=== PATIENT | female | born 1970 | race Asian ===

== ENCOUNTER 2016-10-16 18:54 | Inpatient (IN) | payer OTHER ==
[~2016-10-16] VITALS: Ht 157.5 cm; Wt 67.6 kg
[2016-10-16] MEDS ORDERED: Albuterol ud Inhalation HHN ONE (19:15)
--- NOTE | 2016-10-16 19:15 | Emergency Room Report ---
History of Present Illness General Chief Complaint: Dyspnea/Respdistress Source: Patient, Caregiver Present Illness HPI Patient's 38-year-old female presented after increased difficulty breathing for the past 2 days. Patient gradual onset of symptoms. 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 Reviewed Nursing Documentation: PMH: Agreed, PSxH: Agreed Nursing Documentation-PMH Past Medical History: No History, Except For Hx Asthma: Yes Review of Systems All Other Systems: negative except mentioned in HPI Physical Exam Vital Signs Date Time Temp Pulse Resp B/P Pulse Ox O2 Delivery O2 Flow Rate FiO2 10/16/16 18:58 97.3 93 23 139/94 94 Room Air General Appearance: alert, GCS 15, moderate distress ENT: normal pharynx Neck: limited range of motion Respiratory: wheezing Cardiovascular #1: normal peripheral pulses, regular rate, rhythm Gastrointestinal: normal inspection Neurologic: alert, oriented x3, responsive, edgerman III-XII nml as tested, motor weakness - bilateral upper and lower extremities Psychiatric: normal inspection Skin: normal inspection, normal color Medical Decision Making Diagnostic Impression: Primary Impression: Shortness of breath Additional Impressions: Urinary tract infection Hyponatremia Quadriplegia, unspecified ER Course Patient presented for shortness of breath. Differential included but was not limited to anemia, pneumonia, pneumothorax, myocardial infarction, pericardial effusion, congestive heart failure, acidosis. Because of complexity of patient' s case laboratory testing and imaging studies were ordered.The laboratory studies are notable for markedly hyponatremia. The patient was noted to have elevated urine sodium.D-dimer was noted be negative. A chest x-ray one view interpreted by me showed a right lower lobe atelectasis without definite infiltrate. Urinalysis showed evidence of urinary infection. Patient was given IV antibiotics.Dr. Lisseth Cantu was contacted for inpatient management Labs Test 10/16/16 19:00 10/16/16 20:00 White Blood Count 11.5 K/UL (4.8-10.8) Red Blood Count 3.99 M/UL (4.20-5.40) Hemoglobin 13.1 G/DL (12.0-16.0) Hematocrit 37.0 % (37.0-47.0) Mean Corpuscular Volume 93 FL (80-99) Mean Corpuscular Hemoglobin 32.8 PG (27.0-31.0) Mean Corpuscular Hemoglobin Concent 35.4 G/DL (32.0-36.0) Red Cell Distribution Width 11.1 % (11.6-14.8) Platelet Count 229 K/UL (150-450) Mean Platelet Volume 5.2 FL (6.5-10.1) Neutrophils (%) (Auto) 91.8 % (45.0-75.0) Lymphocytes (%) (Auto) 4.0 % (20.0-45.0) Monocytes (%) (Auto) 3.5 % (1.0-10.0) Eosinophils (%) (Auto) 0.4 % (0.0-3.0) Basophils (%) (Auto) 0.4 % (0.0-2.0) D-Dimer 257 ng/mL (<500) Sodium Level 125 mEQ/L (135-145) Potassium Level 4.1 mEQ/L (3.4-4.9) Chloride Level 94 mEQ/L (98-107) Carbon Dioxide Level 18 mEQ/L (20-30) Anion Gap 13 (5-15) Blood Urea Nitrogen 5 mg/dL (7-23) Creatinine 0.3 mg/dL (0.5-0.9) Estimat Glomerular Filtration Rate > 60 mL/min (>60) Glucose Level 133 mg/dL (74-106) Lactic Acid Level 0.80 mmol/L (0.66-2.22) Calcium Level 7.9 mg/dL (8.6-10.2) Total Bilirubin 1.3 mg/dL (0.0-1.2) Direct Bilirubin 0.2 mg/dL (0.1-0.3) Aspartate Amino Transf (AST/SGOT) 24 U/L (5-40) Alanine Aminotransferase (ALT/SGPT) 8 U/L (3-33) Alkaline Phosphatase 49 U/L (35-104) Pro-B-Type Natriuretic Peptide 345 pg/mL (0-125) Total Protein 6.2 g/dL (6.6-8.7) Albumin 3.8 g/dL (3.5-5.2) Globulin 2.4 g/dL Albumin/Globulin Ratio 1.5 (1.0-2.7) Urine Color Pale yellow Urine Appearance Cloudy Urine pH 7 (4.5-8.0) Urine Specific [place] 1.010 (1.005-1.035) Urine Protein 1+ (NEGATIVE) Urine Glucose (UA) Negative (NEGATIVE) Urine Ketones 4+ (NEGATIVE) Urine Occult Blood Negative (NEGATIVE) Urine Nitrite Positive (NEGATIVE) Urine Bilirubin Negative (NEGATIVE) Urine Urobilinogen 4 MG/DL (0.0-1.0) Urine Leukocyte Esterase 3+ (NEGATIVE) Urine RBC 0-2 /HPF (0 - 2) Urine WBC 10-15 /HPF (0 - 2) Urine Squamous Epithelial Cells None /LPF (NONE/OCC) Urine Bacteria Many /HPF (NONE) Urine Random Sodium 114 mmol/L EKG Diagnostic Results Rate: normal Rhythm: NSR ST Segments: no acute changes ASA given to the pt in ED: No Rhythm Strip Diag. Results EP Interpretation: yes Rhythm: NSR, no PVC's, no ectopy Last Vital Signs Date Time Temp Pulse Resp B/P Pulse Ox O2 Delivery O2 Flow Rate FiO2 10/16/16 18:58 97.3 93 23 139/94 94 Room Air Status: unchanged Disposition: ADMITTED INPATIENT Condition: Stable Rip Ceja Oct 16, 2016 19:15
[2016-10-16 19:45] LABS: MEAN CORPUSCULAR HEMOGLOBIN 32.8 PG (27.0-31.0); MEAN CORPUSCULAR HGB CONC 35.4 G/DL (32.0-36.0); MEAN CORPUSCULAR VOLUME 93 FL (80-99); MEAN PLATELET VOLUME 5.2 FL (6.5-10.1); PLATELET COUNT 229 K/UL (150-450); RED BLOOD COUNT 3.99 M/UL (4.20-5.40); RED CELL DISTRIBUTION WIDTH 11.1 % (11.6-14.8); WHITE BLOOD COUNT 11.5 K/UL (4.8-10.8)
[2016-10-16 19:46] LABS: MONOCYTES % (AUTO) 3.5 % (1.0-10.0); NEUTROPHILS % (AUTO) 91.8 % (45.0-75.0)
[2016-10-16 19:47] LABS: BASOPHILS % (AUTO) 0.4 % (0.0-2.0); EOSINOPHILS % (AUTO) 0.4 % (0.0-3.0)
[2016-10-16 20:07] LABS: ALANINE AMINOTRANSFERASE 8 U/L (3-33); ALBUMIN/GLOBULIN RATIO 1.5 (1.0-2.7); ANION GAP 13 (5-15); ASPARTATE AMINO TRANSFERASE 24 U/L (5-40); CALCIUM 7.9 mg/dL (8.6-10.2); CARBON DIOXIDE 18 mEQ/L (20-30); CHLORIDE 94 mEQ/L (98-107); CREATININE 0.3 mg/dL (0.5-0.9); GLOMERULAR FILTRATION RATE > 60 mL/min (>60); HEMOLYSIS 38; POTASSIUM 4.1 mEQ/L (3.4-4.9); SODIUM 125 mEQ/L (135-145); TOTAL PROTEIN 6.2 g/dL (6.6-8.7)
[2016-10-16 20:27] LABS: BILIRUBIN,DIRECT 0.2 mg/dL (0.1-0.3)
[2016-10-16 20:47] LABS: KETONES,URINE 4+ (NEGATIVE); LEUKOCYTE ESTERASE ,URINE 3+ (NEGATIVE); NITRITE,URINE POSITIVE (NEGATIVE); PH,URINE 7 (4.5-8.0); PROTEIN,URINE 1+ (NEGATIVE); UROBILINOGEN,URINE 4 MG/DL (0.0-1.0)
[2016-10-16 20:48] LABS: APPEARANCE,URINE CLOUDY
[2016-10-16 20:53] LABS: BACTERIA,URINE MANY /HPF; RBC,URINE 0-2 /HPF (0 - 2)
[2016-10-16] MEDS ORDERED: cefTRIAXone 1 GM in NS 55 ML IVPB ONE (21:00)
[2016-10-16 22:39] VITALS: BP 127/83
[2016-10-16 23:50] VITALS: BP 99/65
[2016-10-16] MEDS ORDERED: KADIAN20 MG ORAL (23:53)
[2016-10-16] MEDS ORDERED: DULCOLAX10 MG RC (23:53)
[2016-10-17 00:20] VITALS: BP 114/55
[2016-10-17] MEDS ORDERED: Bisacodyl EC 5mg tab ORAL PRN (01:00)
[2016-10-17] MEDS ORDERED: Docusate 100mg cap ORAL PRN (01:00)
[2016-10-17] MEDS ORDERED: Milk of Magnesia 30ml Ud ORAL PRN (01:00)
[2016-10-17] MEDS ORDERED: DuoNeb 0.5-3(2.5)mg/3ml neb HHN PRN (01:00)
[2016-10-17] MEDS ORDERED: BISACODYL10 M1 RC (03:03)
[2016-10-17] MEDS ORDERED: ACTONEL35 MG ORAL (03:03)
[2016-10-17 04:00] VITALS: BP 123/50
[2016-10-17 07:37] LABS: BASOPHILS % (AUTO) 0.3 % (0.0-2.0); EOSINOPHILS % (AUTO) 0.4 % (0.0-3.0); LYMPHOCYTES % (AUTO) 11.3 % (20.0-45.0); MEAN CORPUSCULAR HEMOGLOBIN 33.2 PG (27.0-31.0); MEAN CORPUSCULAR HGB CONC 34.8 G/DL (32.0-36.0); MEAN CORPUSCULAR VOLUME 95 FL (80-99); MEAN PLATELET VOLUME 5.8 FL (6.5-10.1); MONOCYTES % (AUTO) 7.4 % (1.0-10.0); NEUTROPHILS % (AUTO) 80.5 % (45.0-75.0); PLATELET COUNT 217 K/UL (150-450)
[2016-10-17 07:43] LABS: ANION GAP 11 (5-15); CALCIUM 7.3 mg/dL (8.6-10.2); CARBON DIOXIDE 23 mEQ/L (20-30); CHLORIDE 95 mEQ/L (98-107); CREATININE 0.3 mg/dL (0.5-0.9); GLOMERULAR FILTRATION RATE > 60 mL/min (>60); HEMOLYSIS 1; POTASSIUM 3.6 mEQ/L (3.4-4.9); SODIUM 129 mEQ/L (135-145)
[2016-10-17 08:13] VITALS: BP 120/80
[2016-10-17] MEDS: Heparin 5000 units/ml inj SUBQ SCH ×2 (08:40→20:43)
[2016-10-17 11:38] VITALS: BP 125/88
--- NOTE | 2016-10-17 11:53 | Diagnostic Imaging Report ---
Indication: Dyspnea Comparison: None A single view chest radiograph was obtained. Findings: Cardiomediastinal appearance is within normal limits for age. Pulmonary vascularity is appropriate. The diaphragmatic contour is smooth and costophrenic angles are sharp. No pleural effusions are identified. The bones are unremarkable. Impression: No acute findings
--- NOTE | 2016-10-17 13:23 | Neurology Progress Note ---
Objective Physical Exam Last Vital Signs Date Time Temp Pulse Resp B/P Pulse Ox O2 Delivery O2 Flow Rate FiO2 10/17/16 11:38 97.9 77 20 125/88 96 Nasal Cannula 2.0 10/16/16 23:50 21 Laboratory Tests Test 10/16/16 19:00 10/16/16 20:00 10/17/16 05:50 White Blood Count 11.5 K/UL (4.8-10.8) H 7.0 K/UL (4.8-10.8) Red Blood Count 3.99 M/UL (4.20-5.40) L 3.60 M/UL (4.20-5.40) L Hemoglobin 13.1 G/DL (12.0-16.0) 12.0 G/DL (12.0-16.0) Hematocrit 37.0 % (37.0-47.0) 34.3 % (37.0-47.0) L Mean Corpuscular Volume 93 FL (80-99) 95 FL (80-99) Mean Corpuscular Hemoglobin 32.8 PG (27.0-31.0) H 33.2 PG (27.0-31.0) H Mean Corpuscular Hemoglobin Concent 35.4 G/DL (32.0-36.0) 34.8 G/DL (32.0-36.0) Red Cell Distribution Width 11.1 % (11.6-14.8) L 11.0 % (11.6-14.8) L Platelet Count 229 K/UL (150-450) 217 K/UL (150-450) Mean Platelet Volume 5.2 FL (6.5-10.1) L 5.8 FL (6.5-10.1) L Neutrophils (%) (Auto) 91.8 % (45.0-75.0) H 80.5 % (45.0-75.0) H Lymphocytes (%) (Auto) 4.0 % (20.0-45.0) L 11.3 % (20.0-45.0) L Monocytes (%) (Auto) 3.5 % (1.0-10.0) 7.4 % (1.0-10.0) Eosinophils (%) (Auto) 0.4 % (0.0-3.0) 0.4 % (0.0-3.0) Basophils (%) (Auto) 0.4 % (0.0-2.0) 0.3 % (0.0-2.0) D-Dimer 257 ng/mL (<500) Sodium Level 125 mEQ/L (135-145) L 129 mEQ/L (135-145) L Potassium Level 4.1 mEQ/L (3.4-4.9) 3.6 mEQ/L (3.4-4.9) Chloride Level 94 mEQ/L (98-107) L 95 mEQ/L (98-107) L Carbon Dioxide Level 18 mEQ/L (20-30) L 23 mEQ/L (20-30) Anion Gap 13 (5-15) 11 (5-15) Blood Urea Nitrogen 5 mg/dL (7-23) L 5 mg/dL (7-23) L Creatinine 0.3 mg/dL (0.5-0.9) L 0.3 mg/dL (0.5-0.9) L Estimat Glomerular Filtration Rate > 60 mL/min (>60) > 60 mL/min (>60) Glucose Level 133 mg/dL (74-106) H 120 mg/dL (74-106) H Lactic Acid Level 0.80 mmol/L (0.66-2.22) Calcium Level 7.9 mg/dL (8.6-10.2) L 7.3 mg/dL (8.6-10.2) L Total Bilirubin 1.3 mg/dL (0.0-1.2) H Direct Bilirubin 0.2 mg/dL (0.1-0.3) Aspartate Amino Transf (AST/SGOT) 24 U/L (5-40) Alanine Aminotransferase (ALT/SGPT) 8 U/L (3-33) Alkaline Phosphatase 49 U/L (35-104) Pro-B-Type Natriuretic Peptide 345 pg/mL (0-125) H Total Protein 6.2 g/dL (6.6-8.7) L Albumin 3.8 g/dL (3.5-5.2) Globulin 2.4 g/dL Albumin/Globulin Ratio 1.5 (1.0-2.7) Urine Color Pale yellow Urine Appearance Cloudy Urine pH 7 (4.5-8.0) Urine Specific Pyrites 1.010 (1.005-1.035) Urine Protein 1+ (NEGATIVE) H Urine Glucose (UA) Negative (NEGATIVE) Urine Ketones 4+ (NEGATIVE) H Urine Occult Blood Negative (NEGATIVE) Urine Nitrite Positive (NEGATIVE) H Urine Bilirubin Negative (NEGATIVE) Urine Urobilinogen 4 MG/DL (0.0-1.0) H Urine Leukocyte Esterase 3+ (NEGATIVE) H Urine RBC 0-2 /HPF (0 - 2) Urine WBC 10-15 /HPF (0 - 2) H Urine Squamous Epithelial Cells None /LPF (NONE/OCC) Urine Bacteria Many /HPF (NONE) H Urine Random Sodium 114 mmol/L Impression/Recommendations Recommendations # [id number] GINO WHITE Oct 17, 2016 13:23
--- NOTE | 2016-10-17 14:07 | Infectious Diseases Prog Note ---
Assessment/Plan Problems: (1) Urinary tract infection Assessment & Plan: will send culture and start ceftriaxon empirically (2) Quadriplegia, unspecified Assessment & Plan: continue supportive care (3) Hyponatremia Assessment & Plan: recommend fluids restriction and close monitor of sodium level (4) SOB (shortness of breath) Assessment & Plan: suspect fluids overload, needs to rule out PE, recommend CT angio of the chest Subjective Allergies: Coded Allergies: No Known Allergies (Unverified , 10/16/16) Objective Vital Signs Last 24 Hour Vital Signs Date Time Temp Pulse Resp B/P Pulse Ox O2 Delivery O2 Flow Rate FiO2 10/17/16 11:38 97.9 77 20 125/88 96 Nasal Cannula 2.0 10/17/16 08:13 98.2 74 20 120/80 98 Nasal Cannula 2.0 10/17/16 07:33 72 10/17/16 04:00 70 10/17/16 04:00 97.8 82 20 123/50 98 Nasal Cannula 3.0 10/17/16 01:06 78 18 100 Nasal Cannula 4.0 10/17/16 01:05 75 18 98 Nasal Cannula 4.0 10/17/16 01:04 98 Nasal Cannula 4.0 10/17/16 01:04 Nasal Cannula 4.0 10/17/16 01:02 79 18 10/17/16 00:20 97.9 85 20 114/55 98 Nasal Cannula 3.0 10/16/16 23:50 97.3 87 20 127/83 98 Nasal Cannula 21 10/16/16 23:50 97.3 90 27 99/65 98 Nasal Cannula 21 10/16/16 22:39 97.3 87 20 127/83 98 Nasal Cannula 10/16/16 19:40 86 20 98 Room Air 21 10/16/16 19:33 83 24 Room Air 10/16/16 19:33 84 26 93 Room Air 21 10/16/16 19:05 93 23 Room Air 10/16/16 18:58 97.3 93 23 139/94 94 Room Air Height (Feet): 5 Height (Inches): 2.00 Weight (Pounds): 149 Microbiology Date/Time Source Procedure Growth Status 10/16/16 20:00 Urine,Clean Catch Urine Culture - Preliminary Resulted Laboratory Tests Test 10/16/16 19:00 10/16/16 20:00 10/17/16 05:50 White Blood Count 11.5 K/UL (4.8-10.8) H 7.0 K/UL (4.8-10.8) Red Blood Count 3.99 M/UL (4.20-5.40) L 3.60 M/UL (4.20-5.40) L Hemoglobin 13.1 G/DL (12.0-16.0) 12.0 G/DL (12.0-16.0) Hematocrit 37.0 % (37.0-47.0) 34.3 % (37.0-47.0) L Mean Corpuscular Volume 93 FL (80-99) 95 FL (80-99) Mean Corpuscular Hemoglobin 32.8 PG (27.0-31.0) H 33.2 PG (27.0-31.0) H Mean Corpuscular Hemoglobin Concent 35.4 G/DL (32.0-36.0) 34.8 G/DL (32.0-36.0) Red Cell Distribution Width 11.1 % (11.6-14.8) L 11.0 % (11.6-14.8) L Platelet Count 229 K/UL (150-450) 217 K/UL (150-450) Mean Platelet Volume 5.2 FL (6.5-10.1) L 5.8 FL (6.5-10.1) L Neutrophils (%) (Auto) 91.8 % (45.0-75.0) H 80.5 % (45.0-75.0) H Lymphocytes (%) (Auto) 4.0 % (20.0-45.0) L 11.3 % (20.0-45.0) L Monocytes (%) (Auto) 3.5 % (1.0-10.0) 7.4 % (1.0-10.0) Eosinophils (%) (Auto) 0.4 % (0.0-3.0) 0.4 % (0.0-3.0) Basophils (%) (Auto) 0.4 % (0.0-2.0) 0.3 % (0.0-2.0) D-Dimer 257 ng/mL (<500) Sodium Level 125 mEQ/L (135-145) L 129 mEQ/L (135-145) L Potassium Level 4.1 mEQ/L (3.4-4.9) 3.6 mEQ/L (3.4-4.9) Chloride Level 94 mEQ/L (98-107) L 95 mEQ/L (98-107) L Carbon Dioxide Level 18 mEQ/L (20-30) L 23 mEQ/L (20-30) Anion Gap 13 (5-15) 11 (5-15) Blood Urea Nitrogen 5 mg/dL (7-23) L 5 mg/dL (7-23) L Creatinine 0.3 mg/dL (0.5-0.9) L 0.3 mg/dL (0.5-0.9) L Estimat Glomerular Filtration Rate > 60 mL/min (>60) > 60 mL/min (>60) Glucose Level 133 mg/dL (74-106) H 120 mg/dL (74-106) H Lactic Acid Level 0.80 mmol/L (0.66-2.22) Calcium Level 7.9 mg/dL (8.6-10.2) L 7.3 mg/dL (8.6-10.2) L Total Bilirubin 1.3 mg/dL (0.0-1.2) H Direct Bilirubin 0.2 mg/dL (0.1-0.3) Aspartate Amino Transf (AST/SGOT) 24 U/L (5-40) Alanine Aminotransferase (ALT/SGPT) 8 U/L (3-33) Alkaline Phosphatase 49 U/L (35-104) Pro-B-Type Natriuretic Peptide 345 pg/mL (0-125) H Total Protein 6.2 g/dL (6.6-8.7) L Albumin 3.8 g/dL (3.5-5.2) Globulin 2.4 g/dL Albumin/Globulin Ratio 1.5 (1.0-2.7) Urine Color Pale yellow Urine Appearance Cloudy Urine pH 7 (4.5-8.0) Urine Specific [place] 1.010 (1.005-1.035) Urine Protein 1+ (NEGATIVE) H Urine Glucose (UA) Negative (NEGATIVE) Urine Ketones 4+ (NEGATIVE) H Urine Occult Blood Negative (NEGATIVE) Urine Nitrite Positive (NEGATIVE) H Urine Bilirubin Negative (NEGATIVE) Urine Urobilinogen 4 MG/DL (0.0-1.0) H Urine Leukocyte Esterase 3+ (NEGATIVE) H Urine RBC 0-2 /HPF (0 - 2) Urine WBC 10-15 /HPF (0 - 2) H Urine Squamous Epithelial Cells None /LPF (NONE/OCC) Urine Bacteria Many /HPF (NONE) H Urine Random Sodium 114 mmol/L Current Medications Medications (Trade) Dose Ordered Sig/Sara Route PRN Reason Start Time Stop Time Status Last Admin Dose Admin Acetaminophen (Tylenol) 650 mg Q4H PRN ORAL Mild Pain/Temp > 100.5 10/17/16 01:00 11/16/16 00:59 Albuterol/ Ipratropium (DuoNeb 0.5-3(2.5)mg/3ml) 3 ml Q4H PRN HHN Shortness of Breath 10/17/16 01:00 10/22/16 00:59 Bisacodyl (Dulcolax) 5 mg DAILY PRN ORAL Constipation 10/17/16 01:00 11/16/16 00:59 Docusate Sodium (Colace) 100 mg BID PRN ORAL Constipation 10/17/16 01:00 11/16/16 00:59 Heparin Sodium (Porcine) (Heparin 5000 units/ml) 5,000 units EVERY 12 HOURS SUBQ 10/17/16 09:00 11/16/16 08:59 Magnesium Hydroxide 30 ml 30 ml DAILYPRN PRN ORAL Constipation 10/17/16 01:00 11/16/16 00:59 Sodium Chloride (Sodium Chloride 1000ml bag) 1,000 ml @ 50 mls/hr Q20H IV 10/17/16 01:45 11/16/16 01:44 10/17/16 01:56 Teofilo Chapa M.D. Oct 17, 2016 14:07
--- NOTE | 2016-10-17 14:52 | Consultation ---
Consult Note Consult Note asked to eval for hypoNatremia Patient's 38-year-old female presented after increased difficulty breathing for the past 2 days. Patient gradual onset of symptoms. Patient was noted to be C3 for data reviewed . Assessment/Plan Low Na , etiology? Depletional vs SIADH Primary Impression: Shortness of breath Additional Impressions: Urinary tract infection Hyponatremia Quadriplegia, unspecified Plan: Urine studies- Serum and Urine Os further comments based on those results TENNILLE HEATH Oct 17, 2016 14:52
[2016-10-17 15:56] VITALS: BP 119/82
[2016-10-17] MEDS: cefTRIAXone 1 GM in D5W 55 ML IVPB SCH (16:10)
--- NOTE | 2016-10-17 16:50 | Cardiology Report ---
APPROVED REPORT EKG Measurement Heart [id number] Normal sinus rhythm Normal ECG
--- NOTE | 2016-10-17 17:16 | Consultation ---
DATE OF CONSULTATION: 10/17/2016 INFECTIOUS DISEASE CONSULTATION CONSULTING PHYSICIAN: Teofilo Chapa M.D. REFERRING PHYSICIAN: Lisseth Bose M.D. REASON FOR CONSULTATION: Urinary tract infection with chronic Hauser, recommendation for antibiotic treatment. HISTORY OF PRESENTING ILLNESS: The patient is a 38-year-old female, quadriplegic at C3-C4 level with past medical history of asthma and pneumonia, sent to [facility] for difficulty breathing for two days with gradual onset of her symptoms. The patient usually takes Lasix for edema and fluid overloads and she has not been taking it recently. As per her report, the patient was found to have temperature of 97.3, saturating 94% on room air. Urinalysis showed evidence of infection and she was hyponatremic, so I was consulted by the primary provider for antibiotic treatment for her urinary tract infection due to chronic Hauser catheter. The patient denied any shortness of breath, but she had nonproductive cough. No nausea, vomiting, or diarrhea. No dysuria or hematuria. No suprapubic pain or flank pain. REVIEW OF SYSTEMS: A 14-point system review was all negative apart from the one I mentioned above in my H and P. PAST MEDICAL HISTORY: Significant for asthma, pneumonia, and quadriplegia. PAST SURGICAL HISTORY: Negative. FAMILY HISTORY: Not contributory. SOCIAL HISTORY: She lives at home with a caregiver. Denied using any drugs, tobacco, or alcohol. ALLERGIES: She has no known drug allergy. MEDICATIONS: She received ceftriaxone in the emergency room. For the rest of her medications, please refer to MAR. LABORATORY DATA: Labs showed white count of 7000, hemoglobin of 12, platelet count of 217,000. BUN of 5 and creatinine of 0.3. BNP of 345. Urinalysis showed +3 leukocyte esterase, WBC 10 to 15, and many bacteria. MICROBIOLOGY: Urine culture is pending. IMAGING: Chest x-ray yesterday showed normal appearance. No acute findings. PHYSICAL EXAMINATION: VITAL SIGNS: Temperature 97.9, pulse 77, respirations 20, blood pressure 125/88, and saturation 96% on 2 liters nasal cannula. GENERAL: A middle-aged female, quadriplegic, lying in bed, awake, alert, follows commands, not in distress. HEENT: Normocephalic and atraumatic. Pupils are reactive to light. Pale sclerae. Moist oral mucosa. No exudate or thrush. NECK: Supple. No lymphadenopathy. CARDIOVASCULAR: Regular rate and rhythm. No murmur. Normal S1 and S2. LUNGS: She had wheezing diffusely on the right side with diminished breathing sounds. Normal breathing efforts. ABDOMEN: Soft, nontender, and nondistended. Positive bowel sounds. No hepatosplenomegaly. No ascites. EXTREMITIES: No edema or cyanosis. GENITOURINARY: She had a Hauser catheter in place with no evidence of urine leaking or erythema at the Hauser site. EXTREMITIES: Edema +1. No cyanosis. SKIN: No rash. No hives. Sacral skin breaks. ASSESSMENT AND RECOMMENDATION: 1. Urinary tract infection. We will start ceftriaxone empiric treatment and send urine culture. 2. Shortness of breath with wheezing. Suspect fluid overload. Recommend diuresis and CT angiogram of the lungs to rule out PE. 3. Hyponatremia. Suspect fluid overload. Recommend fluid restriction and diuresis. 4. Quadriplegia. Continue supportive care. Teofilo Chapa M.D. DR: SELWYN JOB#: [id number] CC:
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
--- NOTE | 2016-10-17 17:28 | Consultation ---
History of Present Illness General Chief Complaint: Dyspnea/Respdistress Present Illness Allergies: Coded Allergies: No Known Allergies (Unverified , 10/16/16) Medication History Scheduled Bisacodyl (Bisacodyl), 10 MG RC QOD, (Reported) Risedronate Sodium (Actonel), 35 MG ORAL ONCE A month, (Reported) Discontinued Medications Bisacodyl (Dulcolax), 10 MG RC, (Reported) Discontinued Reason: Medication dose changed Morphine Sulfate (Actonel), 20 MG ORAL, (Reported) Discontinued Reason: Medication dose changed Patient History Healthcare decision maker Resuscitation status Full Code Advanced Directive on File Physical Exam Last 24 Hour Vital Signs Date Time Temp Pulse Resp B/P Pulse Ox O2 Delivery O2 Flow Rate FiO2 10/17/16 16:00 77 10/17/16 15:56 98.4 74 20 119/82 96 Nasal Cannula 2.0 10/17/16 14:49 Nasal Cannula 2.0 10/17/16 14:49 99 22 Room Air 10/17/16 14:49 95 Nasal Cannula 2.0 10/17/16 12:00 82 10/17/16 11:38 97.9 77 20 125/88 96 Nasal Cannula 2.0 10/17/16 08:13 98.2 74 20 120/80 98 Nasal Cannula 2.0 10/17/16 07:33 72 10/17/16 07:06 Nasal Cannula 2.0 10/17/16 07:06 74 19 Nasal Cannula 2.0 10/17/16 07:06 96 Nasal Cannula 2.0 10/17/16 04:00 70 10/17/16 04:00 97.8 82 20 123/50 98 Nasal Cannula 3.0 10/17/16 01:06 78 18 100 Nasal Cannula 4.0 10/17/16 01:05 75 18 98 Nasal Cannula 4.0 10/17/16 01:04 98 Nasal Cannula 4.0 10/17/16 01:04 Nasal Cannula 4.0 10/17/16 01:02 79 18 10/17/16 00:20 97.9 85 20 114/55 98 Nasal Cannula 3.0 10/16/16 23:50 97.3 87 20 127/83 98 Nasal Cannula 21 10/16/16 23:50 97.3 90 27 99/65 98 Nasal Cannula 21 10/16/16 22:39 97.3 87 20 127/83 98 Nasal Cannula 10/16/16 19:40 86 20 98 Room Air 21 10/16/16 19:33 83 24 Room Air 10/16/16 19:33 84 26 93 Room Air 21 10/16/16 19:05 93 23 Room Air 10/16/16 18:58 97.3 93 23 139/94 94 Room Air Intake and Output 10/16/16 10/17/16 19:00 07:00 Intake Total 305 ml Output Total 1400 ml Balance -1095 ml IV Total 305 ml Output Urine Total 1400 ml Laboratory Tests Test 10/16/16 19:00 10/16/16 20:00 10/17/16 05:50 10/17/16 15:47 White Blood Count 11.5 K/UL (4.8-10.8) H 7.0 K/UL (4.8-10.8) Red Blood Count 3.99 M/UL (4.20-5.40) L 3.60 M/UL (4.20-5.40) L Hemoglobin 13.1 G/DL (12.0-16.0) 12.0 G/DL (12.0-16.0) Hematocrit 37.0 % (37.0-47.0) 34.3 % (37.0-47.0) L Mean Corpuscular Volume 93 FL (80-99) 95 FL (80-99) Mean Corpuscular Hemoglobin 32.8 PG (27.0-31.0) H 33.2 PG (27.0-31.0) H Mean Corpuscular Hemoglobin Concent 35.4 G/DL (32.0-36.0) 34.8 G/DL (32.0-36.0) Red Cell Distribution Width 11.1 % (11.6-14.8) L 11.0 % (11.6-14.8) L Platelet Count 229 K/UL (150-450) 217 K/UL (150-450) Mean Platelet Volume 5.2 FL (6.5-10.1) L 5.8 FL (6.5-10.1) L Neutrophils (%) (Auto) 91.8 % (45.0-75.0) H 80.5 % (45.0-75.0) H Lymphocytes (%) (Auto) 4.0 % (20.0-45.0) L 11.3 % (20.0-45.0) L Monocytes (%) (Auto) 3.5 % (1.0-10.0) 7.4 % (1.0-10.0) Eosinophils (%) (Auto) 0.4 % (0.0-3.0) 0.4 % (0.0-3.0) Basophils (%) (Auto) 0.4 % (0.0-2.0) 0.3 % (0.0-2.0) D-Dimer 257 ng/mL (<500) Sodium Level 125 mEQ/L (135-145) L 129 mEQ/L (135-145) L Potassium Level 4.1 mEQ/L (3.4-4.9) 3.6 mEQ/L (3.4-4.9) Chloride Level 94 mEQ/L (98-107) L 95 mEQ/L (98-107) L Carbon Dioxide Level 18 mEQ/L (20-30) L 23 mEQ/L (20-30) Anion Gap 13 (5-15) 11 (5-15) Blood Urea Nitrogen 5 mg/dL (7-23) L 5 mg/dL (7-23) L Creatinine 0.3 mg/dL (0.5-0.9) L 0.3 mg/dL (0.5-0.9) L Estimat Glomerular Filtration Rate > 60 mL/min (>60) > 60 mL/min (>60) Glucose Level 133 mg/dL (74-106) H 120 mg/dL (74-106) H Lactic Acid Level 0.80 mmol/L (0.66-2.22) Calcium Level 7.9 mg/dL (8.6-10.2) L 7.3 mg/dL (8.6-10.2) L Total Bilirubin 1.3 mg/dL (0.0-1.2) H Direct Bilirubin 0.2 mg/dL (0.1-0.3) Aspartate Amino Transf (AST/SGOT) 24 U/L (5-40) Alanine Aminotransferase (ALT/SGPT) 8 U/L (3-33) Alkaline Phosphatase 49 U/L (35-104) Pro-B-Type Natriuretic Peptide 345 pg/mL (0-125) H Total Protein 6.2 g/dL (6.6-8.7) L Albumin 3.8 g/dL (3.5-5.2) Globulin 2.4 g/dL Albumin/Globulin Ratio 1.5 (1.0-2.7) Urine Color Pale yellow Urine Appearance Cloudy Urine pH 7 (4.5-8.0) Urine Specific [place] 1.010 (1.005-1.035) Urine Protein 1+ (NEGATIVE) H Urine Glucose (UA) Negative (NEGATIVE) Urine Ketones 4+ (NEGATIVE) H Urine Occult Blood Negative (NEGATIVE) Urine Nitrite Positive (NEGATIVE) H Urine Bilirubin Negative (NEGATIVE) Urine Urobilinogen 4 MG/DL (0.0-1.0) H Urine Leukocyte Esterase 3+ (NEGATIVE) H Urine RBC 0-2 /HPF (0 - 2) Urine WBC 10-15 /HPF (0 - 2) H Urine Squamous Epithelial Cells None /LPF (NONE/OCC) Urine Bacteria Many /HPF (NONE) H Urine Random Sodium 114 mmol/L 66 mmol/L Urine Osmolality Pending Microbiology Date/Time Source Procedure Growth Status 10/16/16 20:00 Urine,Clean Catch Urine Culture - Preliminary Resulted Height (Feet): 5 Height (Inches): 2.00 Weight (Pounds): 149 Medications Current Medications Medications (Trade) Dose Ordered Sig/Sara Route PRN Reason Start Time Stop Time Status Last Admin Dose Admin Acetaminophen (Tylenol) 650 mg Q4H PRN ORAL Mild Pain/Temp > 100.5 10/17/16 01:00 11/16/16 00:59 Albuterol/ Ipratropium (DuoNeb 0.5-3(2.5)mg/3ml) 3 ml Q4H PRN HHN Shortness of Breath 10/17/16 01:00 10/22/16 00:59 Bisacodyl 5 mg 5 mg DAILY PRN ORAL Constipation 10/17/16 01:00 11/16/16 00:59 Ceftriaxone Sodium/Dextrose (Rocephin/D5W) 55 ml @ 110 mls/hr Q24H IVPB 10/17/16 16:00 10/24/16 15:59 10/17/16 16:10 Docusate Sodium (Colace) 100 mg BID ORAL 10/17/16 18:00 11/16/16 17:59 Heparin Sodium (Porcine) (Heparin 5000 units/ml) 5,000 units EVERY 12 HOURS SUBQ 10/17/16 09:00 11/16/16 08:59 Ranitidine HCl (Zantac) 150 mg TWICE A DAY GT 10/17/16 18:00 11/16/16 17:59 Sodium Chloride 1,000 ml @ 50 mls/hr Q20H IV 10/17/16 01:45 11/16/16 01:44 10/17/16 01:56 SANJU TAYLOR Oct 17, 2016 17:28
[2016-10-17] MEDS ORDERED: Promethazine/Codeine 5ml UD ORAL PRN (17:30)
[2016-10-17] MEDS: Docusate 100mg cap ORAL SCH ×2 (17:48→17:55)
[2016-10-17] MEDS ORDERED: Tubing IV Secondary IV ONE (18:38)
[2016-10-17 20:00] VITALS: BP 139/95
[2016-10-18] VITALS: BP 134/77
--- NOTE | 2016-10-18 01:24 | Wound Care Consultation ---
Wound Assessment Wound Assessment : Wound Number: #1 Wound Present on Admission: Yes New Wound: No Status Change of Wound: No Wound Location Body Site Modif: mid Wound Location Body Site: coccyx Wound Type: pressure ulcer Ed Test: Does not Ed Pressure Ulcer Stage: III Wound Thickness: Full Thickness Wound Length: 2.0 Wound Width: 0.5 Wound Depth: 0.3 Percent of Wound [place]/Red: 100 Wound Drainage Description: Serosanguineous Wound Drainage Amount: Scant Wound Drainage Odor: None/Absent Tissue Surrounding Wound: full thckness scar tissue Wound General Appearance: Reddened, Draining Wound Comment #1 Coccyx stage III pressure ulcer Recommendation -coccyx stage III pressure ulcer Cleanse with saline, pat dry, apply Triad cream, cover with bordered gauze daily and PRN soiled/dislodged -Keep clean and dry -Turn and reposition -Optimize nutrition -Low air loss mattress -Offload both heels -Heel protector on both heels -Assess and f/u accordingly for any changes COBY THOMPSON RN Oct 18, 2016 01:24
--- NOTE | 2016-10-18 02:00 | History and Physical Report ---
DATE OF ADMISSION: 10/16/2016 HISTORY OF PRESENT ILLNESS: The patient is admitted with shortness of breath and hyponatremia. The patient came in with shortness of breath. The patient is quadriplegic, admitted with previous episodes of asthma, history of pneumonia, has chronic indwelling catheter. The patient is also admitted for UTI and hyponatremia. The patient basically complains of for 3 days. Denies orthopnea. Denies wheezing at this point. Denies chest pain. Denies worsening edema. Denies dysuria. PAST MEDICAL HISTORY: Significant for quadriplegia, history of SOB, history of GERD, history of constipation, and osteoporosis. PAST SURGICAL HISTORY: Status post trach. SOCIAL HISTORY: History of smoking. No history of drug or alcohol abuse. CURRENT MEDICATIONS: Accupril and Actonel. ALLERGIES: No known allergies. FAMILY HISTORY: Noncontributory. REVIEW OF SYSTEMS: HEENT: Denies headaches Respiratory: Reports shortness of breath and productive cough for three days. Cardiovascular: Denies chest pain. Denies orthopnea. Gastrointestinal: Denies nausea, vomiting, or diarrhea. Does have occasional heartburn. Extremities: Denies any significant change. Central Nervous System: Denies change in vision or speech pattern. Does have quadriplegia. PHYSICAL EXAMINATION: VITAL SIGNS: Temperature 98.4, pulse 74, and blood pressure 119/83. HEENT: PERRLA. NECK: Supple. No lymphadenopathy. CHEST: Clear to auscultation. GASTROINTESTINAL: Soft, nontender, and nondistended. No organomegaly. EXTREMITIES: No edema. NEUROLOGIC: Reflexes equal on both sides. Does not move four extremities, has quadriplegia. Does not follow neurologic exam LABORATORY DATA: Laboratory cop[place], WBC of 11.5, hemoglobin of 13.1, and platelets 229,000. Sodium 125, potassium 4.1, BUN of 5, creatinine 0.3, and glucose of 133. ASSESSMENT AND PLAN: 1. Urinary tract infection. 2. Hyponatremia. 3. Leukocytosis. 4. Shortness of breath. Chest x-ray showed some right-sided atelectasis. The patient has chronic indwelling catheter. I have consulted Dr. Chapa, Dr. Wharton, Dr. Mccarty, . Dr. Lang for the above mentioned diagnoses and treatment. as well. Lisseth Bose M.D. DR: HUMBERTO JOB#: [id number] CC:
[2016-10-18 04:00] VITALS: BP 118/77
[2016-10-18 07:46] LABS: BASOPHILS % (AUTO) 0.7 % (0.0-2.0); EOSINOPHILS % (AUTO) 1.1 % (0.0-3.0); LYMPHOCYTES % (AUTO) 15.7 % (20.0-45.0); MEAN CORPUSCULAR HEMOGLOBIN 32.4 PG (27.0-31.0); MEAN CORPUSCULAR HGB CONC 33.9 G/DL (32.0-36.0); MEAN CORPUSCULAR VOLUME 96 FL (80-99); MEAN PLATELET VOLUME 5.1 FL (6.5-10.1); MONOCYTES % (AUTO) 9.7 % (1.0-10.0); NEUTROPHILS % (AUTO) 72.8 % (45.0-75.0); PLATELET COUNT 262 K/UL (150-450); RED BLOOD COUNT 3.93 M/UL (4.20-5.40); RED CELL DISTRIBUTION WIDTH 11.1 % (11.6-14.8)
[2016-10-18 08:00] VITALS: BP 112/80
[2016-10-18 08:08] LABS: ALANINE AMINOTRANSFERASE 7 U/L (3-33); ANION GAP 9 (5-15); ASPARTATE AMINO TRANSFERASE 17 U/L (5-40); CALCIUM 8.2 mg/dL (8.6-10.2); CARBON DIOXIDE 23 mEQ/L (20-30); CHLORIDE 104 mEQ/L (98-107); CHOLESTEROL 131 mg/dL (< 200); CHOLESTEROL/HDL RATIO 2.7 (3.3-4.4); CREATININE 0.3 mg/dL (0.5-0.9); CRP QUANT 2.2 mg/dL (< 0.5); GLOMERULAR FILTRATION RATE > 60 mL/min (>60); HEMOLYSIS 2; LDL CHOLESTEROL (CALC.) 65 mg/dL (60-99); MAGNESIUM 2.3 mg/dL (1.7-2.5); PHOSPHORUS 2.1 mg/dL (2.5-4.8); POTASSIUM 3.8 mEQ/L (3.4-4.9); SODIUM 136 mEQ/L (135-145); TOTAL PROTEIN 6.7 g/dL (6.6-8.7); URIC ACID 3.8 mg/dL (3.0-7.5)
[2016-10-18] MEDS: Docusate 100mg cap ORAL SCH ×2 (09:33→18:05)
[2016-10-18] MEDS: Heparin 5000 units/ml inj SUBQ SCH ×3 (09:34→21:00)
--- NOTE | 2016-10-18 09:58 | General Progress Note ---
Assessment/Plan Status: stable Status Narrative Na up 136 Assessment/Plan Primary Impression: Shortness of breath Additional Impressions: Urinary tract infection Hyponatremia Quadriplegia, unspecified Plan: DC IV continue as is- Monitor lytes per consultants Subjective ROS Limited/Unobtainable: Yes Allergies: Coded Allergies: No Known Allergies (Unverified , 10/16/16) Objective Last 24 Hour Vital Signs Date Time Temp Pulse Resp B/P Pulse Ox O2 Delivery O2 Flow Rate FiO2 10/18/16 08:00 97.7 89 21 112/80 96 Nasal Cannula 2.0 10/18/16 04:00 71 10/18/16 04:00 98.2 70 20 118/77 100 Nasal Cannula 2.0 28 10/18/16 00:00 70 10/18/16 00:00 98.2 81 20 134/77 100 Nasal Cannula 2.0 28 10/17/16 20:45 76 20 100 Nasal Cannula 2.0 28 10/17/16 20:44 74 20 98 Nasal Cannula 2.0 10/17/16 20:00 77 10/17/16 20:00 98.2 76 20 139/95 96 Nasal Cannula 2.0 21 10/17/16 19:30 Nasal Cannula 2.0 28 10/17/16 19:30 98 Nasal Cannula 2.0 28 10/17/16 19:30 74 20 Nasal Cannula 2.0 10/17/16 16:00 77 10/17/16 15:56 98.4 74 20 119/82 96 Nasal Cannula 2.0 10/17/16 14:49 Nasal Cannula 2.0 10/17/16 14:49 99 22 Room Air 10/17/16 14:49 95 Nasal Cannula 2.0 10/17/16 12:00 82 10/17/16 11:38 97.9 77 20 125/88 96 Nasal Cannula 2.0 Intake and Output 10/17/16 10/18/16 19:00 07:00 Intake Total 912 ml 550 ml Output Total 1000 ml 3200 ml Balance -88 ml -2650 ml Intake Oral 240 ml IV Total 672 ml 550 ml Output Urine Total 1000 ml 3200 ml Laboratory Tests 10/17/16 15:47: Urine Osmolality 560, Urine Random Sodium 66 10/18/16 07:00: White Blood Count 6.0, Red Blood Count 3.93L, Hemoglobin 12.7, Hematocrit 37.6, Mean Corpuscular Volume 96, Mean Corpuscular Hemoglobin 32.4H, Mean Corpuscular Hemoglobin Concent 33.9, Red Cell Distribution Width 11.1L, Platelet Count 262, Mean Platelet Volume 5.1L, Neutrophils (%) (Auto) 72.8, Lymphocytes (%) (Auto) 15.7L, Monocytes (%) (Auto) 9.7, Eosinophils (%) (Auto) 1.1, Basophils (%) (Auto ) 0.7, Sodium Level 136, Potassium Level 3.8, Chloride Level 104, Carbon Dioxide Level 23, Anion Gap 9, Blood Urea Nitrogen 4L, Creatinine 0.3L, Estimat Glomerular Filtration Rate > 60, Glucose Level 121H, Plasma/Serum Osmolality [ Pending], Uric Acid 3.8, Calcium Level 8.2L, Phosphorus Level 2.1L, Magnesium Level 2.3, Total Bilirubin 0.6, Aspartate Amino Transf (AST/SGOT) 17, Alanine Aminotransferase (ALT/SGPT) 7, Alkaline Phosphatase 49, C-Reactive Protein, Quantitative 2.2H, Pro-B-Type Natriuretic Peptide 208H, Total Protein 6.7, Albumin 3.4L, Globulin 3.3, Albumin/Globulin Ratio 1.0, Triglycerides Level 84, Cholesterol Level 131, LDL Cholesterol 65, HDL Cholesterol 49, Cholesterol/HDL Ratio 2.7L, Thyroid Stimulating Hormone (TSH) 2.090 Height (Feet): 5 Height (Inches): 2.00 Weight (Pounds): 149 General Appearance: no apparent distress Objective other PE not changed TENNILLE HEATH Oct 18, 2016 09:57
[2016-10-18] MEDS ORDERED: Potassium Phosphate 20 MM in NS 275 ML IV ONE (10:30)
[2016-10-18 12:00] VITALS: BP 143/93
--- NOTE | 2016-10-18 12:49 | Consultation ---
History of Present Illness General Date patient seen: Oct 18, 2016 Time patient seen: 12:46 Chief Complaint: Dyspnea/Respdistress Referring physician: otf Reason for Consultation: neurogenic bladder, hx of chronic UTI Present Illness HPI Pleasant 46 yo female admitted for respiratory distress. Long standing hx of quadriplegia. Catheter dependent. Hx of recurrent UTIs, but patient denies any this year. [place] changed by nursing staff once a month. Last changed 2 weeks ago. No concerns otherwise. Allergies: Coded Allergies: No Known Allergies (Unverified , 10/16/16) Medication History Scheduled Bisacodyl (Bisacodyl), 10 MG RC QOD, (Reported) Risedronate Sodium (Actonel), 35 MG ORAL ONCE A month, (Reported) Discontinued Medications Bisacodyl (Dulcolax), 10 MG RC, (Reported) Discontinued Reason: Medication dose changed Morphine Sulfate (Actonel), 20 MG ORAL, (Reported) Discontinued Reason: Medication dose changed Patient History History Provided By: Patient, Medical Record Healthcare decision maker Resuscitation status Full Code Advanced Directive on File Past Medical/Surgical History Past Medical/Surgical History: (1) Quadriplegia, unspecified Review of Systems Constitutional: Denies: chills, fever, malaise, no symptoms, other, see HPI, sweats, weakness Eye: Denies: acuity changes, blurred vision, discharge, double vision, eye pain , no symptoms, nose congestion, nose pain, other, see HPI, tearing ENT: Denies: ear discharge, ear pain, hearing loss, mouth pain, nasal discharge , no symptoms, nose congestion, nose pain, other, see HPI, throat pain, throat swelling Respiratory: Reports: shortness of breath Cardiovascular: Denies: PND, chest pain, edema, no symptoms, other, palpitations, see HPI, syncope Gastrointestinal: Denies: abdominal pain, constipation, diarrhea, hematemesis, melena, nausea, no symptoms, other, see HPI, vomiting Genitourinary: Denies: discharge, dysuria, frequency, hematuria, incontinence, no symptoms, other, pain, retention, see HPI, urgency, vag bleed/dc Musculoskeletal: Denies: back pain, gout, joint pain, joint swelling, muscle pain, muscle stiffness, no symptoms, other, see HPI Skin: Denies: change in color, change in hair/nails, dryness, lesions, no symptoms, other, rash, see HPI Psychiatric: Denies: HI, SI, anxiety, depressed feelings, emotional problems, hallucinations, no symptoms, other, prior hx, see HPI Neurological: Denies: dizziness, focal weakness, headache, no symptoms, numbness, other, paresthesia, see HPI, seizure, syncope, tingling, tremors Endocrine: Denies: excessive sweating, flushing, increased thirst, increased urine, intolerance to temperature, no symptoms, other, see HPI, unexplained weight loss Hematologic/Lymphatic: Denies: anemia, blood clots, diathesis, easy bleeding, easy bruising, no symptoms, other, see HPI, swollen glands Physical Exam General Appearance: no apparent distress Abdomen: soft Genitourinary/Rectal: dut[place] Last 24 Hour Vital Signs Date Time Temp Pulse Resp B/P Pulse Ox O2 Delivery O2 Flow Rate FiO2 10/18/16 12:00 97.9 95 21 143/93 96 Nasal Cannula 2.0 10/18/16 08:00 97.7 89 21 112/80 96 Nasal Cannula 2.0 10/18/16 08:00 76 10/18/16 07:06 98 Nasal Cannula 2.0 10/18/16 07:04 Nasal Cannula 2.0 10/18/16 04:00 71 10/18/16 04:00 98.2 70 20 118/77 100 Nasal Cannula 2.0 10/18/16 00:00 70 10/18/16 00:00 98.2 81 20 134/77 100 Nasal Cannula 2.0 10/17/16 20:45 76 20 100 Nasal Cannula 2.0 10/17/16 20:44 74 20 98 Nasal Cannula 2.0 10/17/16 20:00 77 10/17/16 20:00 98.2 76 20 139/95 96 Nasal Cannula 2.0 10/17/16 19:30 Nasal Cannula 2.0 10/17/16 19:30 98 Nasal Cannula 2.0 10/17/16 19:30 74 20 Nasal Cannula 2.0 10/17/16 16:00 77 10/17/16 15:56 98.4 74 20 119/82 96 Nasal Cannula 2.0 10/17/16 14:49 Nasal Cannula 2.0 10/17/16 14:49 99 22 Room Air 10/17/16 14:49 95 Nasal Cannula 2.0 Intake and Output 10/17/16 10/18/16 19:00 07:00 Intake Total 912 ml 550 ml Output Total 1000 ml 3200 ml Balance -88 ml -2650 ml Intake Oral 240 ml IV Total 672 ml 550 ml Output Urine Total 1000 ml 3200 ml Laboratory Tests Test 10/17/16 15:47 10/18/16 07:00 Urine Osmolality 560 Urine Random Sodium 66 mmol/L White Blood Count 6.0 K/UL (4.8-10.8) Red Blood Count 3.93 M/UL (4.20-5.40) L Hemoglobin 12.7 G/DL (12.0-16.0) Hematocrit 37.6 % (37.0-47.0) Mean Corpuscular Volume 96 FL (80-99) Mean Corpuscular Hemoglobin 32.4 PG (27.0-31.0) H Mean Corpuscular Hemoglobin Concent 33.9 G/DL (32.0-36.0) Red Cell Distribution Width 11.1 % (11.6-14.8) L Platelet Count 262 K/UL (150-450) Mean Platelet Volume 5.1 FL (6.5-10.1) L Neutrophils (%) (Auto) 72.8 % (45.0-75.0) Lymphocytes (%) (Auto) 15.7 % (20.0-45.0) L Monocytes (%) (Auto) 9.7 % (1.0-10.0) Eosinophils (%) (Auto) 1.1 % (0.0-3.0) Basophils (%) (Auto) 0.7 % (0.0-2.0) Sodium Level 136 mEQ/L (135-145) Potassium Level 3.8 mEQ/L (3.4-4.9) Chloride Level 104 mEQ/L (98-107) Carbon Dioxide Level 23 mEQ/L (20-30) Anion Gap 9 (5-15) Blood Urea Nitrogen 4 mg/dL (7-23) L Creatinine 0.3 mg/dL (0.5-0.9) L Estimat Glomerular Filtration Rate > 60 mL/min (>60) Glucose Level 121 mg/dL (74-106) H Plasma/Serum Osmolality Pending Uric Acid 3.8 mg/dL (3.0-7.5) Calcium Level 8.2 mg/dL (8.6-10.2) L Phosphorus Level 2.1 mg/dL (2.5-4.8) L Magnesium Level 2.3 mg/dL (1.7-2.5) Total Bilirubin 0.6 mg/dL (0.0-1.2) Aspartate Amino Transf (AST/SGOT) 17 U/L (5-40) Alanine Aminotransferase (ALT/SGPT) 7 U/L (3-33) Alkaline Phosphatase 49 U/L (35-104) C-Reactive Protein, Quantitative 2.2 mg/dL (< 0.5) H Pro-B-Type Natriuretic Peptide 208 pg/mL (0-125) H Total Protein 6.7 g/dL (6.6-8.7) Albumin 3.4 g/dL (3.5-5.2) L Globulin 3.3 g/dL Albumin/Globulin Ratio 1.0 (1.0-2.7) Triglycerides Level 84 mg/dL (< 150) Cholesterol Level 131 mg/dL (< 200) LDL Cholesterol 65 mg/dL (60-99) HDL Cholesterol 49 mg/dL (> 60) Cholesterol/HDL Ratio 2.7 (3.3-4.4) L Thyroid Stimulating Hormone (TSH) 2.090 uIU/mL (0.300-4.500) Height (Feet): 5 Height (Inches): 2.00 Weight (Pounds): 149 Medications Current Medications Medications (Trade) Dose Ordered Sig/Sara Route PRN Reason Start Time Stop Time Status Last Admin Dose Admin Acetaminophen (Tylenol) 650 mg Q4H PRN ORAL Mild Pain/Temp > 100.5 10/17/16 01:00 11/16/16 00:59 Albuterol/ Ipratropium (DuoNeb 0.5-3(2.5)mg/3ml) 3 ml Q4H PRN HHN Shortness of Breath 10/17/16 01:00 10/22/16 00:59 10/17/16 20:43 Bisacodyl 5 mg 5 mg DAILY PRN ORAL Constipation 10/17/16 01:00 11/16/16 00:59 Ceftriaxone Sodium/Dextrose (Rocephin/D5W) 55 ml @ 110 mls/hr Q24H IVPB 10/17/16 16:00 10/24/16 15:59 10/17/16 16:10 Docusate Sodium (Colace) 100 mg BID ORAL 10/17/16 18:00 11/16/16 17:59 10/18/16 09:33 Heparin Sodium (Porcine) (Heparin 5000 units/ml) 5,000 units EVERY 12 HOURS SUBQ 10/17/16 09:00 11/16/16 08:59 10/18/16 09:34 Potassium Phosphate/Sodium Chloride (Potassium Phosphate/Sodium Chloride) 281.6667 ml @ 46.944 m... 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 Quadriplegic, catheter dependent. Currently no evidence of growth in urine culture. Catheter changed 2 weeks ago. Expect chronic bacteriuria given chronic catheterization. No obvious urinary symptoms, would leave abx therapy to ID. Patient has a good catheter care regimen in place. If UTIs increase in frequency (more than 2-3 a year) , may benefit from gentamicin washes of bladder. 1. no intervention 2. continue monthly catheter changes. Kendrick Myers M.D. Oct 18, 2016 12:49
--- NOTE | 2016-10-18 13:49 | Pulmonology Progress Note ---
Assessment/Plan Problems: (1) Purulent bronchitis (2) Quadriplegia, unspecified Assessment/Plan respiratory treatment IV antibiotics antitussives chest pt Subjective ROS Limited/Unobtainable: No Interval Events: feeling better Allergies: Coded Allergies: No Known Allergies (Unverified , 10/16/16) Objective Last 24 Hour Vital Signs Date Time Temp Pulse Resp B/P Pulse Ox O2 Delivery O2 Flow Rate FiO2 10/18/16 12:00 99 10/18/16 12:00 97.9 95 21 143/93 96 Nasal Cannula 2.0 10/18/16 08:00 97.7 89 21 112/80 96 Nasal Cannula 2.0 10/18/16 08:00 76 10/18/16 07:06 98 Nasal Cannula 2.0 10/18/16 07:04 Nasal Cannula 2.0 10/18/16 04:00 71 10/18/16 04:00 98.2 70 20 118/77 100 Nasal Cannula 2.0 28 10/18/16 00:00 70 10/18/16 00:00 98.2 81 20 134/77 100 Nasal Cannula 2.0 28 10/17/16 20:45 76 20 100 Nasal Cannula 2.0 28 10/17/16 20:44 74 20 98 Nasal Cannula 2.0 28 10/17/16 20:00 77 10/17/16 20:00 98.2 76 20 139/95 96 Nasal Cannula 2.0 21 10/17/16 19:30 Nasal Cannula 2.0 28 10/17/16 19:30 98 Nasal Cannula 2.0 28 10/17/16 19:30 74 20 Nasal Cannula 2.0 10/17/16 16:00 77 10/17/16 15:56 98.4 74 20 119/82 96 Nasal Cannula 2.0 10/17/16 14:49 Nasal Cannula 2.0 10/17/16 14:49 99 22 Room Air 10/17/16 14:49 95 Nasal Cannula 2.0 Intake and Output 10/17/16 10/18/16 19:00 07:00 Intake Total 912 ml 550 ml Output Total 1000 ml 3200 ml Balance -88 ml -2650 ml Intake Oral 240 ml IV Total 672 ml 550 ml Output Urine Total 1000 ml 3200 ml General Appearance: WD/WN HEENT: normocephalic, anicteric Respiratory/Chest: chest wall non-tender, lungs clear Breasts: no masses Cardiovascular: normal peripheral pulses, normal rate Abdomen: normal bowel sounds, soft, non tender Genitourinary: normal external genitalia Extremities: no clubbing Skin: no rash 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 Lymphatic: no neck adenopathy Microbiology Date/Time Source Procedure Growth Status 10/16/16 19:15 Blood Blood Culture - Preliminary NO GROWTH AFTER 24 HOURS Resulted 10/16/16 19:00 Blood Blood Culture - Preliminary NO GROWTH AFTER 24 HOURS Resulted 10/16/16 20:00 Urine,Clean Catch Urine Culture - Preliminary Resulted 10/17/16 01:40 Sacral Wound Gram Stain Pending Resulted 10/17/16 01:40 Sacral Wound Wound Culture - Preliminary Resulted Laboratory Tests 10/17/16 15:47: Urine Osmolality 560, Urine Random Sodium 66 10/18/16 07:00: White Blood Count 6.0, Red Blood Count 3.93L, Hemoglobin 12.7, Hematocrit 37.6, Mean Corpuscular Volume 96, Mean Corpuscular Hemoglobin 32.4H, Mean Corpuscular Hemoglobin Concent 33.9, Red Cell Distribution Width 11.1L, Platelet Count 262, Mean Platelet Volume 5.1L, Neutrophils (%) (Auto) 72.8, Lymphocytes (%) (Auto) 15.7L, Monocytes (%) (Auto) 9.7, Eosinophils (%) (Auto) 1.1, Basophils (%) (Auto ) 0.7, Sodium Level 136, Potassium Level 3.8, Chloride Level 104, Carbon Dioxide Level 23, Anion Gap 9, Blood Urea Nitrogen 4L, Creatinine 0.3L, Estimat Glomerular Filtration Rate > 60, Glucose Level 121H, Plasma/Serum Osmolality [ Pending], Uric Acid 3.8, Calcium Level 8.2L, Phosphorus Level 2.1L, Magnesium Level 2.3, Total Bilirubin 0.6, Aspartate Amino Transf (AST/SGOT) 17, Alanine Aminotransferase (ALT/SGPT) 7, Alkaline Phosphatase 49, C-Reactive Protein, Quantitative 2.2H, Pro-B-Type Natriuretic Peptide 208H, Total Protein 6.7, Albumin 3.4L, Globulin 3.3, Albumin/Globulin Ratio 1.0, Triglycerides Level 84, Cholesterol Level 131, LDL Cholesterol 65, HDL Cholesterol 49, Cholesterol/HDL Ratio 2.7L, Thyroid Stimulating Hormone (TSH) 2.090 Current Medications Medications (Trade) Dose Ordered Sig/Sara Route PRN Reason Start Time Stop Time Status Last Admin Dose Admin Acetaminophen (Tylenol) 650 mg Q4H PRN ORAL Mild Pain/Temp > 100.5 10/17/16 01:00 11/16/16 00:59 Albuterol/ Ipratropium (DuoNeb 0.5-3(2.5)mg/3ml) 3 ml Q4H PRN HHN Shortness of Breath 10/17/16 01:00 10/22/16 00:59 10/17/16 20:43 Bisacodyl 5 mg 5 mg DAILY PRN ORAL Constipation 10/17/16 01:00 11/16/16 00:59 Ceftriaxone Sodium/Dextrose (Rocephin/D5W) 55 ml @ 110 mls/hr Q24H IVPB 10/17/16 16:00 10/24/16 15:59 10/17/16 16:10 Docusate Sodium (Colace) 100 mg BID ORAL 10/17/16 18:00 11/16/16 17:59 10/18/16 09:33 Heparin Sodium (Porcine) (Heparin 5000 units/ml) 5,000 units EVERY 12 HOURS SUBQ 10/17/16 09:00 11/16/16 08:59 10/18/16 09:34 Potassium Phosphate/Sodium Chloride (Potassium Phosphate/Sodium Chloride) 281.6667 ml @ 46.944 m... ONCE ONCE IV 10/18/16 10:30 10/18/16 16:29 10/18/16 11:09 Promethazine HCl/ Codeine 5 ml 5 ml Q4H PRN ORAL For Cough 10/17/16 17:30 11/16/16 17:29 Ranitidine HCl (Zantac) 150 mg TWICE A DAY ORAL 10/18/16 18:00 11/17/16 17:59 SANJU TAYLOR Oct 18, 2016 13:49
[2016-10-18 16:00] VITALS: BP 137/86
--- NOTE | 2016-10-18 17:31 | Infectious Diseases Prog Note ---
Assessment/Plan Problems: (1) Urinary tract infection Assessment & Plan: await culture and continue ceftriaxon empirically (2) Quadriplegia, unspecified Assessment & Plan: continue supportive care (3) Hyponatremia Assessment & Plan: recommend fluids restriction and close monitor of sodium level (4) SOB (shortness of breath) Assessment & Plan: suspect fluids overload, needs to rule out PE, recommend CT angio of the chest Subjective Constitutional: Reports: no symptoms HEENT: Reports: no symptoms Respiratory: Reports: no symptoms Breasts: Reports: no symptoms Cardiovascular: Reports: no symptoms Gastrointestinal/Abdominal: Reports: no symptoms Genitourinary: Reports: no symptoms Neurologic: Reports: no symptoms Psychiatric: Reports: no symptoms Skin: Reports: ulcer Endocrine: Reports: no symptoms Hematologic: Reports: no symptoms Musculoskeletal: Reports: swelling Allergies: Coded Allergies: No Known Allergies (Unverified , 10/16/16) Objective Vital Signs Last 24 Hour Vital Signs Date Time Temp Pulse Resp B/P Pulse Ox O2 Delivery O2 Flow Rate FiO2 10/18/16 16:00 98.2 80 21 137/86 96 Nasal Cannula 2.0 10/18/16 12:00 99 10/18/16 12:00 97.9 95 21 143/93 96 Nasal Cannula 2.0 10/18/16 08:00 97.7 89 21 112/80 96 Nasal Cannula 2.0 10/18/16 08:00 76 10/18/16 07:06 98 Nasal Cannula 2.0 10/18/16 07:04 Nasal Cannula 2.0 10/18/16 04:00 71 10/18/16 04:00 98.2 70 20 118/77 100 Nasal Cannula 2.0 10/18/16 00:00 70 10/18/16 00:00 98.2 81 20 134/77 100 Nasal Cannula 2.0 10/17/16 20:45 76 20 100 Nasal Cannula 2.0 10/17/16 20:44 74 20 98 Nasal Cannula 2.0 10/17/16 20:00 77 10/17/16 20:00 98.2 76 20 139/95 96 Nasal Cannula 2.0 21 10/17/16 19:30 Nasal Cannula 2.0 28 10/17/16 19:30 98 Nasal Cannula 2.0 28 10/17/16 19:30 74 20 Nasal Cannula 2.0 28 Height (Feet): 5 Height (Inches): 2.00 Weight (Pounds): 149 General Appearance: WD/WN, no acute distress HEENT: normocephalic, atraumatic, anicteric, mucous membranes moist, PERRL, EOMI, pharynx normal, supple, no JVD Respiratory/Chest: chest wall non-tender, normal breath sounds, no respiratory distress, no accessory muscle use, decreased breath sounds, expiratory wheezing Cardiovascular: normal peripheral pulses, normal rate, regular rhythm, no gallop/murmur, no JVD Abdomen: normal bowel sounds, soft, non tender, no organomegaly, non distended , no mass, no scars Extremities: no cyanosis, no clubbing, other - edema Skin: no rash, no lesions, ulcers Lymphatic: no neck adenopathy, no groin adenopathy Musculoskeletal: normal muscle bulk Microbiology Date/Time Source Procedure Growth Status 10/16/16 19:15 Blood Blood Culture - Preliminary NO GROWTH AFTER 24 HOURS Resulted 10/16/16 19:00 Blood Blood Culture - Preliminary NO GROWTH AFTER 24 HOURS Resulted 10/16/16 20:00 Urine,Clean Catch Urine Culture - Preliminary Resulted 10/17/16 01:40 Sacral Wound Gram Stain - Final Resulted 10/17/16 01:40 Sacral Wound Wound Culture - Preliminary Resulted Laboratory Tests Test 10/18/16 07:00 White Blood Count 6.0 K/UL (4.8-10.8) Red Blood Count 3.93 M/UL (4.20-5.40) L Hemoglobin 12.7 G/DL (12.0-16.0) Hematocrit 37.6 % (37.0-47.0) Mean Corpuscular Volume 96 FL (80-99) Mean Corpuscular Hemoglobin 32.4 PG (27.0-31.0) H Mean Corpuscular Hemoglobin Concent 33.9 G/DL (32.0-36.0) Red Cell Distribution Width 11.1 % (11.6-14.8) L Platelet Count 262 K/UL (150-450) Mean Platelet Volume 5.1 FL (6.5-10.1) L Neutrophils (%) (Auto) 72.8 % (45.0-75.0) Lymphocytes (%) (Auto) 15.7 % (20.0-45.0) L Monocytes (%) (Auto) 9.7 % (1.0-10.0) Eosinophils (%) (Auto) 1.1 % (0.0-3.0) Basophils (%) (Auto) 0.7 % (0.0-2.0) Sodium Level 136 mEQ/L (135-145) Potassium Level 3.8 mEQ/L (3.4-4.9) Chloride Level 104 mEQ/L (98-107) Carbon Dioxide Level 23 mEQ/L (20-30) Anion Gap 9 (5-15) Blood Urea Nitrogen 4 mg/dL (7-23) L Creatinine 0.3 mg/dL (0.5-0.9) L Estimat Glomerular Filtration Rate > 60 mL/min (>60) Glucose Level 121 mg/dL (74-106) H Plasma/Serum Osmolality Pending Uric Acid 3.8 mg/dL (3.0-7.5) Calcium Level 8.2 mg/dL (8.6-10.2) L Phosphorus Level 2.1 mg/dL (2.5-4.8) L Magnesium Level 2.3 mg/dL (1.7-2.5) Total Bilirubin 0.6 mg/dL (0.0-1.2) Aspartate Amino Transf (AST/SGOT) 17 U/L (5-40) Alanine Aminotransferase (ALT/SGPT) 7 U/L (3-33) Alkaline Phosphatase 49 U/L (35-104) C-Reactive Protein, Quantitative 2.2 mg/dL (< 0.5) H Pro-B-Type Natriuretic Peptide 208 pg/mL (0-125) H Total Protein 6.7 g/dL (6.6-8.7) Albumin 3.4 g/dL (3.5-5.2) L Globulin 3.3 g/dL Albumin/Globulin Ratio 1.0 (1.0-2.7) Triglycerides Level 84 mg/dL (< 150) Cholesterol Level 131 mg/dL (< 200) LDL Cholesterol 65 mg/dL (60-99) HDL Cholesterol 49 mg/dL (> 60) Cholesterol/HDL Ratio 2.7 (3.3-4.4) L Thyroid Stimulating Hormone (TSH) 2.090 uIU/mL (0.300-4.500) Current Medications Medications (Trade) Dose Ordered Sig/Sara Route PRN Reason Start Time Stop Time Status Last Admin Dose Admin Acetaminophen (Tylenol) 650 mg Q4H PRN ORAL Mild Pain/Temp > 100.5 10/17/16 01:00 11/16/16 00:59 Albuterol/ Ipratropium (DuoNeb 0.5-3(2.5)mg/3ml) 3 ml Q4H PRN HHN Shortness of Breath 10/17/16 01:00 10/22/16 00:59 10/17/16 20:43 Bisacodyl 5 mg 5 mg DAILY PRN ORAL Constipation 10/17/16 01:00 11/16/16 00:59 Ceftriaxone Sodium/Dextrose (Rocephin/D5W) 55 ml @ 110 mls/hr Q24H IVPB 10/17/16 16:00 10/24/16 15:59 10/17/16 16:10 Docusate Sodium (Colace) 100 mg BID ORAL 10/17/16 18:00 11/16/16 17:59 10/18/16 09:33 Heparin Sodium (Porcine) (Heparin 5000 units/ml) 5,000 units EVERY 12 HOURS SUBQ 10/17/16 09:00 11/16/16 08:59 10/18/16 09:34 Promethazine HCl/ Codeine (Phenergan with Codeine) 5 ml Q4H PRN ORAL For Cough 10/17/16 17:30 11/16/16 17:29 Ranitidine HCl (Zantac) 150 mg TWICE A DAY ORAL 10/18/16 18:00 11/17/16 17:59 Teofilo Chapa M.D. Oct 18, 2016 17:31
[2016-10-18] MEDS: cefTRIAXone 1 GM in D5W 55 ML IVPB SCH (18:05)
[2016-10-18 19:52] VITALS: BP 136/98
--- NOTE | 2016-10-18 20:03 | General Progress Note ---
Assessment/Plan Problem List: (1) Quadriplegia, unspecified ICD Codes: G82.50 - Quadriplegia, unspecified SNOMED: 09732072 (2) Urinary tract infection ICD Codes: N39.0 - Urinary tract infection, site not specified SNOMED: 43802149 Status: progressing Assessment/Plan afebrile vitals stable abx per id clinically improving Subjective ROS Limited/Unobtainable: Yes Allergies: Coded Allergies: No Known Allergies (Unverified , 10/16/16) Objective Last 24 Hour Vital Signs Date Time Temp Pulse Resp B/P Pulse Ox O2 Delivery O2 Flow Rate FiO2 10/18/16 19:52 99.0 89 19 136/98 94 Nasal Cannula 10/18/16 19:44 Nasal Cannula 2.0 10/18/16 19:43 98 Nasal Cannula 2.0 10/18/16 16:00 98.2 80 21 137/86 96 Nasal Cannula 2.0 10/18/16 12:00 99 10/18/16 12:00 97.9 95 21 143/93 96 Nasal Cannula 2.0 10/18/16 08:00 97.7 89 21 112/80 96 Nasal Cannula 2.0 10/18/16 08:00 76 10/18/16 07:06 98 Nasal Cannula 2.0 10/18/16 07:04 Nasal Cannula 2.0 10/18/16 04:00 71 10/18/16 04:00 98.2 70 20 118/77 100 Nasal Cannula 2.0 28 10/18/16 00:00 70 10/18/16 00:00 98.2 81 20 134/77 100 Nasal Cannula 2.0 28 10/17/16 20:45 76 20 100 Nasal Cannula 2.0 28 10/17/16 20:44 74 20 98 Nasal Cannula 2.0 28 Intake and Output 10/17/16 10/18/16 19:00 07:00 Intake Total 912 ml 550 ml Output Total 1000 ml 3200 ml Balance -88 ml -2650 ml Intake Oral 240 ml IV Total 672 ml 550 ml Output Urine Total 1000 ml 3200 ml Laboratory Tests 10/18/16 07:00: White Blood Count 6.0, Red Blood Count 3.93L, Hemoglobin 12.7, Hematocrit 37.6, Mean Corpuscular Volume 96, Mean Corpuscular Hemoglobin 32.4H, Mean Corpuscular Hemoglobin Concent 33.9, Red Cell Distribution Width 11.1L, Platelet Count 262, Mean Platelet Volume 5.1L, Neutrophils (%) (Auto) 72.8, Lymphocytes (%) (Auto) 15.7L, Monocytes (%) (Auto) 9.7, Eosinophils (%) (Auto) 1.1, Basophils (%) (Auto ) 0.7, Sodium Level 136, Potassium Level 3.8, Chloride Level 104, Carbon Dioxide Level 23, Anion Gap 9, Blood Urea Nitrogen 4L, Creatinine 0.3L, Estimat Glomerular Filtration Rate > 60, Glucose Level 121H, Plasma/Serum Osmolality [ Pending], Uric Acid 3.8, Calcium Level 8.2L, Phosphorus Level 2.1L, Magnesium Level 2.3, Total Bilirubin 0.6, Aspartate Amino Transf (AST/SGOT) 17, Alanine Aminotransferase (ALT/SGPT) 7, Alkaline Phosphatase 49, C-Reactive Protein, Quantitative 2.2H, Pro-B-Type Natriuretic Peptide 208H, Total Protein 6.7, Albumin 3.4L, Globulin 3.3, Albumin/Globulin Ratio 1.0, Triglycerides Level 84, Cholesterol Level 131, LDL Cholesterol 65, HDL Cholesterol 49, Cholesterol/HDL Ratio 2.7L, Thyroid Stimulating Hormone (TSH) 2.090 Height (Feet): 5 Height (Inches): 2.00 Weight (Pounds): 149 Respiratory/Chest: lungs clear Lisseth Bose MD Oct 18, 2016 20:03
[2016-10-18] MEDS ORDERED: Promethazine/Codeine 5ml UD ORAL PRN (21:30)
[2016-10-19] VITALS: BP 98/59
[2016-10-19] MEDS: DuoNeb 0.5-3(2.5)mg/3ml neb HHN PRN ×2 (00:05→19:27)
[2016-10-19 04:00] VITALS: BP 108/66
[2016-10-19 06:29] LABS: BASOPHILS % (AUTO) 0.7 % (0.0-2.0); EOSINOPHILS % (AUTO) 0.7 % (0.0-3.0); LYMPHOCYTES % (AUTO) 20.6 % (20.0-45.0); MEAN CORPUSCULAR HEMOGLOBIN 32.9 PG (27.0-31.0); MEAN CORPUSCULAR HGB CONC 34.2 G/DL (32.0-36.0); MEAN CORPUSCULAR VOLUME 96 FL (80-99); MEAN PLATELET VOLUME 5.3 FL (6.5-10.1); PLATELET COUNT 277 K/UL (150-450); RED BLOOD COUNT 3.96 M/UL (4.20-5.40); RED CELL DISTRIBUTION WIDTH 11.2 % (11.6-14.8); WHITE BLOOD COUNT 6.1 K/UL (4.8-10.8)
[2016-10-19 06:34] LABS: ALANINE AMINOTRANSFERASE 6 U/L (3-33); ANION GAP 9 (5-15); ASPARTATE AMINO TRANSFERASE 15 U/L (5-40); CARBON DIOXIDE 24 mEQ/L (20-30); CHLORIDE 101 mEQ/L (98-107); CREATININE 0.3 mg/dL (0.5-0.9); GLOMERULAR FILTRATION RATE > 60 mL/min (>60); HEMOLYSIS 3; SODIUM 134 mEQ/L (135-145); TOTAL PROTEIN 6.6 g/dL (6.6-8.7)
[2016-10-19 08:00] VITALS: BP 101/68
--- NOTE | 2016-10-19 08:41 | General Progress Note ---
Assessment/Plan Status: stable Status Narrative Na 134 Assessment/Plan Primary Impression: Shortness of breath Additional Impressions: Urinary tract infection Hyponatremia Quadriplegia, unspecified Plan: DC IV continue as is- Monitor lytes per consultants Subjective ROS Limited/Unobtainable: No Constitutional: Reports: malaise Allergies: Coded Allergies: No Known Allergies (Unverified , 10/16/16) Objective Last 24 Hour Vital Signs Date Time Temp Pulse Resp B/P Pulse Ox O2 Delivery O2 Flow Rate FiO2 10/19/16 07:30 Nasal Cannula 2.0 28 10/19/16 07:30 96 Nasal Cannula 2.0 28 10/19/16 04:00 96.8 79 20 108/66 93 Nasal Cannula 2.0 10/19/16 00:34 94 22 93 Venturi Mask 12.0 50 10/19/16 00:05 84 20 95 Nasal Cannula 3.0 32 10/19/16 00:00 98.0 99 20 98/59 94 Nasal Cannula 2.0 10/18/16 19:52 99.0 89 19 136/98 94 Nasal Cannula 10/18/16 19:44 Nasal Cannula 2.0 10/18/16 19:43 98 Nasal Cannula 2.0 10/18/16 16:00 98.2 80 21 137/86 96 Nasal Cannula 2.0 10/18/16 12:00 99 10/18/16 12:00 97.9 95 21 143/93 96 Nasal Cannula 2.0 Intake and Output 10/18/16 10/19/16 19:00 07:00 Intake Total 600 ml 1200 ml Output Total 2000 ml 1000 ml Balance -1400 ml 200 ml Intake Oral 600 ml 1200 ml Output Urine Total 2000 ml 1000 ml Laboratory Tests 10/19/16 05:45: White Blood Count 6.1, Red Blood Count 3.96L, Hemoglobin 13.0, Hematocrit 38.1, Mean Corpuscular Volume 96, Mean Corpuscular Hemoglobin 32.9H, Mean Corpuscular Hemoglobin Concent 34.2, Red Cell Distribution Width 11.2L, Platelet Count 277, Mean Platelet Volume 5.3L, Neutrophils (%) (Auto) 71.0, Lymphocytes (%) (Auto) 20.6, Monocytes (%) (Auto) 7.0, Eosinophils (%) (Auto) 0.7, Basophils (%) (Auto ) 0.7, Sodium Level 134L, Potassium Level 4.0, Chloride Level 101, Carbon Dioxide Level 24, Anion Gap 9, Blood Urea Nitrogen 4L, Creatinine 0.3L, Estimat Glomerular Filtration Rate > 60, Glucose Level 117H, Calcium Level 8.0L, Total Bilirubin 0.6, Aspartate Amino Transf (AST/SGOT) 15, Alanine Aminotransferase ( ALT/SGPT) 6, Alkaline Phosphatase 49, Pro-B-Type Natriuretic Peptide 145H, Total Protein 6.6, Albumin 3.4L, Globulin 3.2, Albumin/Globulin Ratio 1.0 Height (Feet): 5 Height (Inches): 2.00 Weight (Pounds): 149 General Appearance: no apparent distress Objective other PE not changed TENNILLE HEATH Oct 19, 2016 08:41
[2016-10-19] MEDS ORDERED: Bisacodyl EC 5mg tab ORAL PRN (09:00)
[2016-10-19] MEDS: Heparin 5000 units/ml inj SUBQ SCH ×2 (09:00→20:58)
[2016-10-19] MEDS: Docusate 100mg cap ORAL SCH ×2 (09:30→18:29)
--- NOTE | 2016-10-19 10:14 | Diagnostic Imaging Report ---
Indication: Dyspnea Comparison: 10/16/16 A single view chest radiograph was obtained. Findings: There are air bronchograms at the left lung base. There is obscuring of the lateral aspect of the left hemidiaphragm and costophrenic angle. Exam limited R. rotation. Heart size appears normal. Bones are osteopenic. Impression: Suspected left basilar pneumonia and parapneumonic effusion. Followup recommended
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
--- NOTE | 2016-10-19 11:43 | GI Initial Consult Note ---
History of Present Illness General Date patient seen: Oct 19, 2016 Time patient seen: 11:37 Reason for Hospitalization: Dyspnea/Respdistress Referring physician: ELIZABETH FOFANA Reason for Consultation: CONSTIPATION Present Illness HPI The patient is admitted with shortness of breath and hyponatremia. The patient came in with shortness of breath. The patient is quadriplegic, admitted with previous episodes of asthma, history of pneumonia, has chronic indwelling catheter. The patient is also admitted for UTI and hyponatremia. Denies orthopnea. Denies wheezing at this point. Denies chest pain. Denies worsening edema. Denies dysuria. GI Consult. HPI as noted above. GI consulted for constipation. Pt seen on floor, awake A&Ox4 NAD with caregiver by bedside. States she has not had a BM for 3 days, abdomen soft non tender to touch. She presents today with resolving hyponatremia and unremarkable CBC and LFTs. No known history of endoscopic procedures. Home Meds Reported Medications Risedronate Sodium (ACTONEL) 35 Mg Tablet, 35 MG ORAL ONCE A month, TAB Administer in an upright position (sitting or standing). Avoid lying down for >=30 minutes following administration 10/17/16 Bisacodyl (BISACODYL) 10 Mg Supp.rect, 10 MG RC QOD, SUPP 10/17/16 Discontinued Reported Medications Bisacodyl (DULCOLAX) 10 Mg Supp.rect, 10 MG RC, SUPP 10/16/16 Morphine Sulfate (Actonel) 35 Mg Tablet, 20 MG ORAL, #10 CAP 0 Refills 10/16/16 Med list reviewed/reconciled: Yes Allergies: Coded Allergies: No Known Allergies (Unverified , 10/16/16) Patient History History Provided By: Patient, Medical Record [facility] Narrative PAST MEDICAL HISTORY: Significant for quadriplegia, history of SOB, history of GERD, history of constipation, and osteoporosis. PAST SURGICAL HISTORY: Status post trach. SOCIAL HISTORY: History of smoking. No history of drug or alcohol abuse. Review of Systems All Other Systems: negative except mentioned in HPI Physical Exam Vital Signs Date Time Temp Pulse Resp B/P Pulse Ox O2 Delivery O2 Flow Rate FiO2 10/16/16 18:58 97.3 93 23 139/94 94 Room Air 10/16/16 19:33 21 10/17/16 00:20 3.0 Sp02 EP Interpretation: reviewed Labs Laboratory Tests Test 10/19/16 05:45 White Blood Count 6.1 K/UL (4.8-10.8) Red Blood Count 3.96 M/UL (4.20-5.40) L Hemoglobin 13.0 G/DL (12.0-16.0) Hematocrit 38.1 % (37.0-47.0) Mean Corpuscular Volume 96 FL (80-99) Mean Corpuscular Hemoglobin 32.9 PG (27.0-31.0) H Mean Corpuscular Hemoglobin Concent 34.2 G/DL (32.0-36.0) Red Cell Distribution Width 11.2 % (11.6-14.8) L Platelet Count 277 K/UL (150-450) Mean Platelet Volume 5.3 FL (6.5-10.1) L Neutrophils (%) (Auto) 71.0 % (45.0-75.0) Lymphocytes (%) (Auto) 20.6 % (20.0-45.0) Monocytes (%) (Auto) 7.0 % (1.0-10.0) Eosinophils (%) (Auto) 0.7 % (0.0-3.0) Basophils (%) (Auto) 0.7 % (0.0-2.0) Sodium Level 134 mEQ/L (135-145) L Potassium Level 4.0 mEQ/L (3.4-4.9) Chloride Level 101 mEQ/L (98-107) Carbon Dioxide Level 24 mEQ/L (20-30) Anion Gap 9 (5-15) Blood Urea Nitrogen 4 mg/dL (7-23) L Creatinine 0.3 mg/dL (0.5-0.9) L Estimat Glomerular Filtration Rate > 60 mL/min (>60) Glucose Level 117 mg/dL (74-106) H Calcium Level 8.0 mg/dL (8.6-10.2) L Total Bilirubin 0.6 mg/dL (0.0-1.2) Aspartate Amino Transf (AST/SGOT) 15 U/L (5-40) Alanine Aminotransferase (ALT/SGPT) 6 U/L (3-33) Alkaline Phosphatase 49 U/L (35-104) Pro-B-Type Natriuretic Peptide 145 pg/mL (0-125) H Total Protein 6.6 g/dL (6.6-8.7) Albumin 3.4 g/dL (3.5-5.2) L Globulin 3.2 g/dL Albumin/Globulin Ratio 1.0 (1.0-2.7) General Appearance: well appearing, no apparent distress, alert Head: normocephalic EENT: normal ENT inspection Neck: supple Respiratory: normal breath sounds, no respiratory distress Cardiovascular: normal rate Gastrointestinal: normal inspection, non tender, soft, normal bowel sounds Rectal: deferred Musculoskeletal: normal inspection, back normal Neurologic: normal inspection, alert, oriented x3, responsive Psychiatric: normal inspection, judgement/insight normal, memory normal Skin: normal inspection, normal color, no rash Lymphatic: normal inspection, no adenopathy Current Medications Current Medications Medications (Trade) Dose Ordered Sig/Sara Route PRN Reason Start Time Stop Time Status Last Admin Dose Admin Acetaminophen (Tylenol) 650 mg Q4H PRN ORAL Temp > 100.5 10/19/16 10:22 11/17/16 20:59 Albuterol/ Ipratropium (DuoNeb 0.5-3(2.5)mg/3ml) 3 ml Q4H PRN HHN Shortness of Breath 10/18/16 21:00 10/23/16 20:59 10/19/16 00:05 Bisacodyl (Dulcolax) 5 mg DAILYPRN PRN ORAL Constipation 10/19/16 09:00 11/18/16 08:59 Bisacodyl (Dulcolax) 10 mg DAILYPRN PRN RECTAL Constipation 10/19/16 10:30 11/18/16 10:29 10/19/16 11:21 Ceftriaxone Sodium/Dextrose (Rocephin/D5W) 55 ml @ 110 mls/hr Q24H IVPB 10/19/16 16:00 10/26/16 15:59 Docusate Sodium (Colace) 100 mg BID ORAL 10/19/16 09:00 11/18/16 08:59 10/19/16 09:30 Heparin Sodium (Porcine) (Heparin 5000 units/ml) 5,000 units EVERY 12 HOURS SUBQ 10/18/16 21:00 11/17/16 20:59 Naproxen (Naprosyn) 375 mg BIDPRN PRN ORAL pain 10/19/16 10:30 11/18/16 10:29 Promethazine HCl/ Codeine (Phenergan with Codeine) 5 ml Q4H PRN ORAL For Cough 10/18/16 21:30 11/17/16 21:29 Ranitidine HCl (Zantac) 150 mg TWICE A DAY ORAL 10/19/16 09:00 11/18/16 08:59 10/19/16 09:29 GI: Plan Problems: (1) Constipation (2) Hyponatremia Plan dulcolax prn, consider fleets enema if patient does not have BM. regular diet, tolerating cont H2B electrolyte correction fu labs Discussed with Dr. Balderas. Thank you for referring this patient, we will follow. Zulma Shi N.P. Oct 19, 2016 11:43
[2016-10-19] MEDS: Naproxen 375mg tab ORAL PRN (12:38)
--- NOTE | 2016-10-19 15:10 | Diagnostic Imaging Report ---
APPROVED REPORT CPT Code: 45100 Present Symptoms Shortness of breath Comments: Swelling BILATERAL: Imaging reveals a patent deep venous system bilaterally. There is no evidence of thrombus within the femoral, popliteal or tibial segments. The greater saphenous veins are also within normal limits. Doppler indicates normal spontaneous flow within these segments.
[2016-10-19] MEDS ORDERED: cefTRIAXone 1 GM in D5W 55 ML IVPB SCH (16:00)
--- NOTE | 2016-10-19 16:00 | Pulmonology Progress Note ---
Assessment/Plan Problems: (1) Purulent bronchitis (2) Quadriplegia, unspecified Assessment/Plan respiratory treatment IV antibiotics antitussives chest pt improving gradually pain consult was called. Subjective ROS Limited/Unobtainable: No Interval Events: improving Allergies: Coded Allergies: No Known Allergies (Unverified , 10/16/16) Objective Last 24 Hour Vital Signs Date Time Temp Pulse Resp B/P Pulse Ox O2 Delivery O2 Flow Rate FiO2 10/19/16 08:00 98.1 20 101/68 97 Nasal Cannula 5.0 10/19/16 07:30 Nasal Cannula 2.0 28 10/19/16 07:30 96 Nasal Cannula 2.0 28 10/19/16 04:00 96.8 79 20 108/66 93 Nasal Cannula 2.0 10/19/16 00:34 94 22 93 Venturi Mask 12.0 50 10/19/16 00:05 84 20 95 Nasal Cannula 3.0 32 10/19/16 00:00 98.0 99 20 98/59 94 Nasal Cannula 2.0 10/18/16 19:52 99.0 89 19 136/98 94 Nasal Cannula 10/18/16 19:44 Nasal Cannula 2.0 10/18/16 19:43 98 Nasal Cannula 2.0 10/18/16 16:00 98.2 80 21 137/86 96 Nasal Cannula 2.0 Intake and Output 10/18/16 10/19/16 19:00 07:00 Intake Total 600 ml 1200 ml Output Total 2000 ml 1000 ml Balance -1400 ml 200 ml Intake Oral 600 ml 1200 ml Output Urine Total 2000 ml 1000 ml General Appearance: WD/WN HEENT: normocephalic, atraumatic Respiratory/Chest: chest wall non-tender, lungs clear Cardiovascular: normal peripheral pulses, normal rate Abdomen: normal bowel sounds, soft, non tender Genitourinary: normal external genitalia Extremities: no cyanosis Skin: no rash Neurologic/Psychiatric: etcher enameling II-XII grossly normal, no motor/sensory deficits Lymphatic: no neck adenopathy Microbiology Date/Time Source Procedure Growth Status 10/16/16 19:15 Blood Blood Culture - Preliminary NO GROWTH AFTER 48 HOURS Resulted 10/16/16 19:00 Blood Blood Culture - Preliminary NO GROWTH AFTER 48 HOURS Resulted 10/18/16 11:50 Sputum Gram Stain - Final Resulted 10/18/16 11:50 Sputum Sputum Culture - Preliminary NO GROWTH Resulted 10/16/16 20:00 Urine,Clean Catch Urine Culture - Preliminary Gram Negative Bacillus 1 Gram Negative Bacillus 2 Resulted 10/17/16 01:40 Sacral Wound Gram Stain - Final Resulted 10/17/16 01:40 Wound Culture - Preliminary Klebsiella Pneumoniae Gram Negative Bacillus 2 Gram Negative Bacillus 3 Strep Species, Gamma-Hemolytic Resulted Laboratory Tests 10/19/16 05:45: White Blood Count 6.1, Red Blood Count 3.96L, Hemoglobin 13.0, Hematocrit 38.1, Mean Corpuscular Volume 96, Mean Corpuscular Hemoglobin 32.9H, Mean Corpuscular Hemoglobin Concent 34.2, Red Cell Distribution Width 11.2L, Platelet Count 277, Mean Platelet Volume 5.3L, Neutrophils (%) (Auto) 71.0, Lymphocytes (%) (Auto) 20.6, Monocytes (%) (Auto) 7.0, Eosinophils (%) (Auto) 0.7, Basophils (%) (Auto ) 0.7, Sodium Level 134L, Potassium Level 4.0, Chloride Level 101, Carbon Dioxide Level 24, Anion Gap 9, Blood Urea Nitrogen 4L, Creatinine 0.3L, Estimat Glomerular Filtration Rate > 60, Glucose Level 117H, Calcium Level 8.0L, Total Bilirubin 0.6, Aspartate Amino Transf (AST/SGOT) 15, Alanine Aminotransferase ( ALT/SGPT) 6, Alkaline Phosphatase 49, Pro-B-Type Natriuretic Peptide 145H, Total Protein 6.6, Albumin 3.4L, Globulin 3.2, Albumin/Globulin Ratio 1.0 Current Medications Medications (Trade) Dose Ordered Sig/Sara Route PRN Reason Start Time Stop Time Status Last Admin Dose Admin Acetaminophen (Tylenol) 650 mg Q4H PRN ORAL Temp > 100.5 10/19/16 10:22 11/17/16 20:59 Albuterol/ Ipratropium (DuoNeb 0.5-3(2.5)mg/3ml) 3 ml Q4H PRN HHN Shortness of Breath 10/18/16 21:00 10/23/16 20:59 10/19/16 00:05 Bisacodyl (Dulcolax) 5 mg DAILYPRN PRN ORAL Constipation 10/19/16 09:00 11/18/16 08:59 Bisacodyl (Dulcolax) 10 mg DAILYPRN PRN RECTAL Constipation 10/19/16 10:30 11/18/16 10:29 10/19/16 11:21 Ceftriaxone Sodium/Dextrose (Rocephin/D5W) 55 ml @ 110 mls/hr Q24H IVPB 10/19/16 16:00 10/26/16 15:59 Docusate Sodium (Colace) 100 mg BID ORAL 10/19/16 09:00 11/18/16 08:59 10/19/16 09:30 Heparin Sodium (Porcine) (Heparin 5000 units/ml) 5,000 units EVERY 12 HOURS SUBQ 10/18/16 21:00 11/17/16 20:59 Naproxen (Naprosyn) 375 mg BIDPRN PRN ORAL pain 10/19/16 10:30 11/18/16 10:29 10/19/16 12:38 Promethazine HCl/ Codeine (Phenergan with Codeine) 5 ml Q4H PRN ORAL For Cough 10/18/16 21:30 11/17/16 21:29 Ranitidine HCl (Zantac) 150 mg TWICE A DAY ORAL 10/19/16 09:00 11/18/16 08:59 10/19/16 09:29 SANJU TAYLOR Oct 19, 2016 16:00
[2016-10-19 16:33] VITALS: BP 104/68
[2016-10-19] MEDS ORDERED: Tubing IV Secondary IV ONE (16:46)
--- NOTE | 2016-10-19 16:59 | Infectious Diseases Prog Note ---
Assessment/Plan Problems: (1) LLL pneumonia Assessment & Plan: with parapneumonic effusion, on ceftriaxon , will switch to cefepime and vancomycin, monitor CXR (2) Urinary tract infection Assessment & Plan: with two gram negative rods , await identifications and sensitivity , continue ceftriaxon empirically (3) Quadriplegia, unspecified Assessment & Plan: continue supportive care (4) Hyponatremia Assessment & Plan: recommend fluids restriction and close monitor of sodium level (5) SOB (shortness of breath) Assessment & Plan: suspect fluids overload, legs doppler is negative for DVT. Subjective Constitutional: Reports: no symptoms HEENT: Reports: no symptoms Respiratory: Reports: no symptoms Breasts: Reports: no symptoms Cardiovascular: Reports: no symptoms Gastrointestinal/Abdominal: Reports: no symptoms Genitourinary: Reports: no symptoms Neurologic: Reports: no symptoms Psychiatric: Reports: no symptoms Skin: Reports: no symptoms Endocrine: Reports: no symptoms Hematologic: Reports: no symptoms Musculoskeletal: Reports: no symptoms Allergies: Coded Allergies: No Known Allergies (Unverified , 10/16/16) Objective Vital Signs Last 24 Hour Vital Signs Date Time Temp Pulse Resp B/P Pulse Ox O2 Delivery O2 Flow Rate FiO2 10/19/16 16:33 97.9 20 104/68 91 Nasal Cannula 5.0 10/19/16 08:00 98.1 20 101/68 97 Nasal Cannula 5.0 10/19/16 07:30 Nasal Cannula 2.0 28 10/19/16 07:30 96 Nasal Cannula 2.0 28 10/19/16 04:00 96.8 79 20 108/66 93 Nasal Cannula 2.0 10/19/16 00:34 94 22 93 Venturi Mask 12.0 50 10/19/16 00:05 84 20 95 Nasal Cannula 3.0 32 10/19/16 00:00 98.0 99 20 98/59 94 Nasal Cannula 2.0 10/18/16 19:52 99.0 89 19 136/98 94 Nasal Cannula 10/18/16 19:44 Nasal Cannula 2.0 10/18/16 19:43 98 Nasal Cannula 2.0 Height (Feet): 5 Height (Inches): 2.00 Weight (Pounds): 149 General Appearance: WD/WN, no acute distress HEENT: normocephalic, atraumatic, anicteric, mucous membranes moist Respiratory/Chest: chest wall non-tender, lungs clear, normal breath sounds, no respiratory distress, no accessory muscle use Cardiovascular: normal peripheral pulses, normal rate, regular rhythm, no gallop/murmur, no JVD Abdomen: normal bowel sounds, soft, non tender, no organomegaly, non distended , no mass Extremities: no cyanosis, no clubbing Skin: no rash, no lesions, ulcers Lymphatic: no neck adenopathy, no groin adenopathy Musculoskeletal: normal muscle bulk Microbiology Date/Time Source Procedure Growth Status 10/16/16 19:15 Blood Blood Culture - Preliminary NO GROWTH AFTER 48 HOURS Resulted 10/16/16 19:00 Blood Blood Culture - Preliminary NO GROWTH AFTER 48 HOURS Resulted 10/18/16 11:50 Sputum Gram Stain - Final Resulted 10/18/16 11:50 Sputum Sputum Culture - Preliminary NO GROWTH Resulted 10/16/16 20:00 Urine,Clean Catch Urine Culture - Preliminary Gram Negative Bacillus 1 Gram Negative Bacillus 2 Resulted 10/17/16 01:40 Sacral Wound Gram Stain - Final Resulted 10/17/16 01:40 Wound Culture - Preliminary Klebsiella Pneumoniae Gram Negative Bacillus 2 Gram Negative Bacillus 3 Strep Species, Gamma-Hemolytic Resulted Laboratory Tests Test 10/19/16 05:45 White Blood Count 6.1 K/UL (4.8-10.8) Red Blood Count 3.96 M/UL (4.20-5.40) L Hemoglobin 13.0 G/DL (12.0-16.0) Hematocrit 38.1 % (37.0-47.0) Mean Corpuscular Volume 96 FL (80-99) Mean Corpuscular Hemoglobin 32.9 PG (27.0-31.0) H Mean Corpuscular Hemoglobin Concent 34.2 G/DL (32.0-36.0) Red Cell Distribution Width 11.2 % (11.6-14.8) L Platelet Count 277 K/UL (150-450) Mean Platelet Volume 5.3 FL (6.5-10.1) L Neutrophils (%) (Auto) 71.0 % (45.0-75.0) Lymphocytes (%) (Auto) 20.6 % (20.0-45.0) Monocytes (%) (Auto) 7.0 % (1.0-10.0) Eosinophils (%) (Auto) 0.7 % (0.0-3.0) Basophils (%) (Auto) 0.7 % (0.0-2.0) Sodium Level 134 mEQ/L (135-145) L Potassium Level 4.0 mEQ/L (3.4-4.9) Chloride Level 101 mEQ/L (98-107) Carbon Dioxide Level 24 mEQ/L (20-30) Anion Gap 9 (5-15) Blood Urea Nitrogen 4 mg/dL (7-23) L Creatinine 0.3 mg/dL (0.5-0.9) L Estimat Glomerular Filtration Rate > 60 mL/min (>60) Glucose Level 117 mg/dL (74-106) H Calcium Level 8.0 mg/dL (8.6-10.2) L Total Bilirubin 0.6 mg/dL (0.0-1.2) Aspartate Amino Transf (AST/SGOT) 15 U/L (5-40) Alanine Aminotransferase (ALT/SGPT) 6 U/L (3-33) Alkaline Phosphatase 49 U/L (35-104) Pro-B-Type Natriuretic Peptide 145 pg/mL (0-125) H Total Protein 6.6 g/dL (6.6-8.7) Albumin 3.4 g/dL (3.5-5.2) L Globulin 3.2 g/dL Albumin/Globulin Ratio 1.0 (1.0-2.7) Current Medications Medications (Trade) Dose Ordered Sig/Sara Route PRN Reason Start Time Stop Time Status Last Admin Dose Admin Acetaminophen (Tylenol) 650 mg Q4H PRN ORAL Temp > 100.5 10/19/16 10:22 11/17/16 20:59 Albuterol/ Ipratropium (DuoNeb 0.5-3(2.5)mg/3ml) 3 ml Q4H PRN HHN Shortness of Breath 10/18/16 21:00 10/23/16 20:59 10/19/16 00:05 Bisacodyl (Dulcolax) 5 mg DAILYPRN PRN ORAL Constipation 10/19/16 09:00 11/18/16 08:59 Bisacodyl (Dulcolax) 10 mg DAILYPRN PRN RECTAL Constipation 10/19/16 10:30 11/18/16 10:29 10/19/16 11:21 Ceftriaxone Sodium/Dextrose (Rocephin/D5W) 55 ml @ 110 mls/hr Q24H IVPB 10/19/16 16:00 10/26/16 15:59 10/19/16 16:15 Docusate Sodium (Colace) 100 mg BID ORAL 10/19/16 09:00 11/18/16 08:59 10/19/16 09:30 Heparin Sodium (Porcine) (Heparin 5000 units/ml) 5,000 units EVERY 12 HOURS SUBQ 10/18/16 21:00 11/17/16 20:59 Naproxen (Naprosyn) 375 mg BIDPRN PRN ORAL pain 10/19/16 10:30 11/18/16 10:29 10/19/16 12:38 Promethazine HCl/ Codeine (Phenergan with Codeine) 5 ml Q4H PRN ORAL For Cough 10/18/16 21:30 11/17/16 21:29 Ranitidine HCl (Zantac) 150 mg TWICE A DAY ORAL 10/19/16 09:00 11/18/16 08:59 10/19/16 09:29 Teofilo Chapa M.D. Oct 19, 2016 16:59
[2016-10-19] MEDS: Cefepime HCl 2 GM in D5W 110 ML IVPB SCH (18:50)
[2016-10-19 20:00] VITALS: BP 129/66
[2016-10-19] MEDS: Vancomycin 1gm in Dextrose 275ml IVPB SCH (20:04)
--- NOTE | 2016-10-19 20:34 | General Progress Note ---
Assessment/Plan Problem List: (1) Quadriplegia, unspecified ICD Codes: G82.50 - Quadriplegia, unspecified SNOMED: 47776632 (2) Urinary tract infection ICD Codes: N39.0 - Urinary tract infection, site not specified SNOMED: 31951901 Status: progressing Assessment/Plan uti quadriplegia abx per id afebrile vitals stable abx per id no hematurea Subjective ROS Limited/Unobtainable: Yes Allergies: Coded Allergies: No Known Allergies (Unverified , 10/16/16) Objective Last 24 Hour Vital Signs Date Time Temp Pulse Resp B/P Pulse Ox O2 Delivery O2 Flow Rate FiO2 10/19/16 20:00 97.9 102 20 129/66 92 Nasal Cannula 4.0 10/19/16 19:37 90 20 98 Nasal Cannula 4.0 36 10/19/16 19:26 95 Nasal Cannula 4.0 36 10/19/16 19:26 91 20 96 Nasal Cannula 4.0 36 10/19/16 19:26 Nasal Cannula 4.0 36 10/19/16 16:33 97.9 20 104/68 91 Nasal Cannula 5.0 10/19/16 08:00 98.1 20 101/68 97 Nasal Cannula 5.0 10/19/16 07:30 Nasal Cannula 2.0 28 10/19/16 07:30 96 Nasal Cannula 2.0 28 10/19/16 04:00 96.8 79 20 108/66 93 Nasal Cannula 2.0 10/19/16 00:34 94 22 93 Venturi Mask 12.0 50 10/19/16 00:05 84 20 95 Nasal Cannula 3.0 32 10/19/16 00:00 98.0 99 20 98/59 94 Nasal Cannula 2.0 Intake and Output 10/18/16 10/19/16 19:00 07:00 Intake Total 600 ml 1200 ml Output Total 2000 ml 1000 ml Balance -1400 ml 200 ml Intake Oral 600 ml 1200 ml Output Urine Total 2000 ml 1000 ml Laboratory Tests 10/19/16 05:45: White Blood Count 6.1, Red Blood Count 3.96L, Hemoglobin 13.0, Hematocrit 38.1, Mean Corpuscular Volume 96, Mean Corpuscular Hemoglobin 32.9H, Mean Corpuscular Hemoglobin Concent 34.2, Red Cell Distribution Width 11.2L, Platelet Count 277, Mean Platelet Volume 5.3L, Neutrophils (%) (Auto) 71.0, Lymphocytes (%) (Auto) 20.6, Monocytes (%) (Auto) 7.0, Eosinophils (%) (Auto) 0.7, Basophils (%) (Auto ) 0.7, Sodium Level 134L, Potassium Level 4.0, Chloride Level 101, Carbon Dioxide Level 24, Anion Gap 9, Blood Urea Nitrogen 4L, Creatinine 0.3L, Estimat Glomerular Filtration Rate > 60, Glucose Level 117H, Calcium Level 8.0L, Total Bilirubin 0.6, Aspartate Amino Transf (AST/SGOT) 15, Alanine Aminotransferase ( ALT/SGPT) 6, Alkaline Phosphatase 49, Pro-B-Type Natriuretic Peptide 145H, Total Protein 6.6, Albumin 3.4L, Globulin 3.2, Albumin/Globulin Ratio 1.0 Height (Feet): 5 Height (Inches): 2.00 Weight (Pounds): 149 Abdomen: soft Lisseth Bose MD Oct 19, 2016 20:34
[2016-10-20] VITALS: BP 95/64
[2016-10-20] MEDS: Vancomycin 1gm in Dextrose 275ml IVPB SCH ×3 (03:39→18:48)
[2016-10-20 04:00] VITALS: BP 125/73
[2016-10-20] MEDS: Cefepime HCl 2 GM in D5W 110 ML IVPB SCH ×2 (06:03→17:23)
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
[2016-10-20 07:45] LABS: ANION GAP 11 (5-15); CALCIUM 8.2 mg/dL (8.6-10.2); CARBON DIOXIDE 23 mEQ/L (20-30); CHLORIDE 99 mEQ/L (98-107); CREATININE 0.4 mg/dL (0.5-0.9); GLOMERULAR FILTRATION RATE > 60 mL/min (>60); HEMOLYSIS 3; POTASSIUM 4.1 mEQ/L (3.4-4.9); SODIUM 133 mEQ/L (135-145)
[2016-10-20 07:48] LABS: EOSINOPHILS % (AUTO) 3.2 % (0.0-3.0); LYMPHOCYTES % (AUTO) 22.4 % (20.0-45.0); MEAN CORPUSCULAR HGB CONC 34.3 G/DL (32.0-36.0); MEAN CORPUSCULAR VOLUME 96 FL (80-99); NEUTROPHILS % (AUTO) 64.4 % (45.0-75.0); PLATELET COUNT 273 K/UL (150-450); RED BLOOD COUNT 3.94 M/UL (4.20-5.40); RED CELL DISTRIBUTION WIDTH 11.2 % (11.6-14.8); WHITE BLOOD COUNT 4.7 K/UL (4.8-10.8)
[2016-10-20] MEDS: Heparin 5000 units/ml inj SUBQ SCH ×2 (09:00→21:00)
[2016-10-20] MEDS: Docusate 100mg cap ORAL SCH ×2 (09:00→17:49)
--- NOTE | 2016-10-20 11:38 | General Progress Note ---
Assessment/Plan Problem List: (1) Constipation ICD Codes: K59.00 - Constipation, unspecified SNOMED: 57789655 (2) Urinary tract infection ICD Codes: N39.0 - Urinary tract infection, site not specified SNOMED: 08838784 (3) Quadriplegia, unspecified ICD Codes: G82.50 - Quadriplegia, unspecified SNOMED: 38495379 Assessment/Plan colace miralax prn dulcolax on regular diet fu Subjective ROS Limited/Unobtainable: Yes Allergies: Coded Allergies: No Known Allergies (Unverified , 10/16/16) Objective Last 24 Hour Vital Signs Date Time Temp Pulse Resp B/P Pulse Ox O2 Delivery O2 Flow Rate FiO2 10/20/16 08:00 98.2 81 18 94 10/20/16 07:21 Nasal Cannula 4.0 10/20/16 06:58 96 Nasal Cannula 4.0 10/20/16 04:00 99.3 63 18 125/73 97 Nasal Cannula 3.0 10/20/16 00:00 99.9 76 18 95/64 94 Nasal Cannula 4.0 10/19/16 20:00 97.9 102 20 129/66 92 Nasal Cannula 4.0 10/19/16 19:37 90 20 98 Nasal Cannula 4.0 36 10/19/16 19:26 95 Nasal Cannula 4.0 36 10/19/16 19:26 91 20 96 Nasal Cannula 4.0 36 10/19/16 19:26 Nasal Cannula 4.0 36 10/19/16 16:33 97.9 20 104/68 91 Nasal Cannula 5.0 Intake and Output 10/19/16 10/20/16 19:00 07:00 Intake Total 660.000 ml Output Total 1350 ml 500 ml Balance -1350 ml 160.000 ml IV Total 660.000 ml Output Urine Total 1350 ml 500 ml Laboratory Tests 10/20/16 06:45: White Blood Count 4.7L, Red Blood Count 3.94L, Hemoglobin 13.0, Hematocrit 37.9 , Mean Corpuscular Volume 96, Mean Corpuscular Hemoglobin 33.0H, Mean Corpuscular Hemoglobin Concent 34.3, Red Cell Distribution Width 11.2L, Platelet Count 273, Mean Platelet Volume 5.0L, Neutrophils (%) (Auto) 64.4, Lymphocytes (%) (Auto) 22.4, Monocytes (%) (Auto) 9.0, Eosinophils (%) (Auto) 3.2H, Basophils (%) (Auto) 1.0, Sodium Level 133L, Potassium Level 4.1, Chloride Level 99, Carbon Dioxide Level 23, Anion Gap 11, Blood Urea Nitrogen 4L , Creatinine 0.4L, Estimat Glomerular Filtration Rate > 60, Glucose Level 163H, Calcium Level 8.2L Height (Feet): 5 Height (Inches): 2.00 Weight (Pounds): 149 General Appearance: no apparent distress EENT: normal ENT inspection Neck: supple Cardiovascular: normal rate Respiratory/Chest: decreased breath sounds Abdomen: normal bowel sounds, non tender, soft Extremities: non-tender LEVAR WHALEY Oct 20, 2016 11:38
[2016-10-20 12:00] VITALS: BP 110/68
--- NOTE | 2016-10-20 14:32 | Infectious Diseases Prog Note ---
Assessment/Plan Problems: (1) LLL pneumonia Assessment & Plan: with parapneumonic effusion, on cefepime and vancomycin, monitor CXR (2) Urinary tract infection Assessment & Plan: with E coli and proteus mirabilis , on cefepime for 7 days (3) Quadriplegia, unspecified Assessment & Plan: continue supportive care (4) Hyponatremia Assessment & Plan: recommend fluids restriction and close monitor of sodium level (5) SOB (shortness of breath) Assessment & Plan: suspect pneumonia related, which showed up on repeated CXR , now on antibiotics , legs doppler is negative for DVT. Subjective Constitutional: Reports: no symptoms HEENT: Reports: no symptoms Respiratory: Reports: no symptoms Breasts: Reports: no symptoms Cardiovascular: Reports: no symptoms Gastrointestinal/Abdominal: Reports: no symptoms Genitourinary: Reports: no symptoms Neurologic: Reports: no symptoms Psychiatric: Reports: no symptoms Skin: Reports: ulcer Endocrine: Reports: no symptoms Hematologic: Reports: no symptoms Allergies: Coded Allergies: No Known Allergies (Unverified , 10/16/16) Objective Vital Signs Last 24 Hour Vital Signs Date Time Temp Pulse Resp B/P Pulse Ox O2 Delivery O2 Flow Rate FiO2 10/20/16 12:00 98.0 80 18 110/68 96 Nasal Cannula 3.0 10/20/16 08:00 98.2 81 18 94 10/20/16 07:21 Nasal Cannula 4.0 10/20/16 06:58 96 Nasal Cannula 4.0 10/20/16 04:00 99.3 63 18 125/73 97 Nasal Cannula 3.0 10/20/16 00:00 99.9 76 18 95/64 94 Nasal Cannula 4.0 10/19/16 20:00 97.9 102 20 129/66 92 Nasal Cannula 4.0 10/19/16 19:37 90 20 98 Nasal Cannula 4.0 36 10/19/16 19:26 95 Nasal Cannula 4.0 36 10/19/16 19:26 91 20 96 Nasal Cannula 4.0 36 10/19/16 19:26 Nasal Cannula 4.0 36 10/19/16 16:33 97.9 20 104/68 91 Nasal Cannula 5.0 Height (Feet): 5 Height (Inches): 2.00 Weight (Pounds): 149 General Appearance: WD/WN, no acute distress HEENT: normocephalic, atraumatic, anicteric, mucous membranes moist, EOMI, pharynx normal, supple Respiratory/Chest: chest wall non-tender, normal breath sounds, no respiratory distress, no accessory muscle use, decreased breath sounds, expiratory wheezing Cardiovascular: normal peripheral pulses, normal rate, regular rhythm, no gallop/murmur, no JVD Abdomen: normal bowel sounds, soft, non tender, no organomegaly, non distended , no mass, no scars Extremities: no cyanosis, no clubbing Skin: no rash, no lesions, ulcers Musculoskeletal: normal muscle bulk, no effusion Microbiology Date/Time Source Procedure Growth Status 10/18/16 11:50 Sputum Gram Stain - Final Complete 10/18/16 11:50 Sputum Sputum Culture - Final NORMAL UPPER RESPIRATORY WHITNEY AT 48 ... Complete Laboratory Tests Test 10/20/16 06:45 White Blood Count 4.7 K/UL (4.8-10.8) L Red Blood Count 3.94 M/UL (4.20-5.40) L Hemoglobin 13.0 G/DL (12.0-16.0) Hematocrit 37.9 % (37.0-47.0) Mean Corpuscular Volume 96 FL (80-99) Mean Corpuscular Hemoglobin 33.0 PG (27.0-31.0) H Mean Corpuscular Hemoglobin Concent 34.3 G/DL (32.0-36.0) Red Cell Distribution Width 11.2 % (11.6-14.8) L Platelet Count 273 K/UL (150-450) Mean Platelet Volume 5.0 FL (6.5-10.1) L Neutrophils (%) (Auto) 64.4 % (45.0-75.0) Lymphocytes (%) (Auto) 22.4 % (20.0-45.0) Monocytes (%) (Auto) 9.0 % (1.0-10.0) Eosinophils (%) (Auto) 3.2 % (0.0-3.0) H Basophils (%) (Auto) 1.0 % (0.0-2.0) Sodium Level 133 mEQ/L (135-145) L Potassium Level 4.1 mEQ/L (3.4-4.9) Chloride Level 99 mEQ/L (98-107) Carbon Dioxide Level 23 mEQ/L (20-30) Anion Gap 11 (5-15) Blood Urea Nitrogen 4 mg/dL (7-23) L Creatinine 0.4 mg/dL (0.5-0.9) L Estimat Glomerular Filtration Rate > 60 mL/min (>60) Glucose Level 163 mg/dL (74-106) H Calcium Level 8.2 mg/dL (8.6-10.2) L Current Medications Medications (Trade) Dose Ordered Sig/Sara Route PRN Reason Start Time Stop Time Status Last Admin Dose Admin Acetaminophen (Tylenol) 650 mg Q4H PRN ORAL Temp > 100.5 10/19/16 10:22 11/17/16 20:59 Albuterol/ Ipratropium (DuoNeb 0.5-3(2.5)mg/3ml) 3 ml Q4H PRN HHN Shortness of Breath 10/18/16 21:00 10/23/16 20:59 10/19/16 19:27 Bisacodyl (Dulcolax) 5 mg DAILYPRN PRN ORAL Constipation 10/19/16 09:00 11/18/16 08:59 Bisacodyl (Dulcolax) 10 mg DAILYPRN PRN RECTAL Constipation 10/19/16 10:30 11/18/16 10:29 10/19/16 11:21 Cefepime HCl 2 gm/ Dextrose 110 ml @ 220 mls/hr Q12HR@0600,1800 IVPB 10/19/16 18:30 10/26/16 18:29 10/20/16 06:03 Docusate Sodium (Colace) 100 mg BID ORAL 10/19/16 09:00 11/18/16 08:59 10/20/16 09:00 Heparin Sodium (Porcine) (Heparin 5000 units/ml) 5,000 units EVERY 12 HOURS SUBQ 10/18/16 21:00 11/17/16 20:59 Naproxen (Naprosyn) 375 mg BIDPRN PRN ORAL pain 10/19/16 10:30 11/18/16 10:29 10/19/16 12:38 Polyethylene Glycol (Miralax) 17 gm BEDTIME ORAL 10/20/16 21:00 11/19/16 20:59 Promethazine HCl/ Codeine (Phenergan with Codeine) 5 ml Q4H PRN ORAL For Cough 10/18/16 21:30 11/17/16 21:29 Ranitidine HCl (Zantac) 150 mg TWICE A DAY ORAL 10/19/16 09:00 11/18/16 08:59 10/20/16 09:39 Vancomycin HCl 1 ea 1 ea DAILY PRN MISC Per rx protocol 10/19/16 17:00 11/18/16 16:59 Vancomycin HCl/ Dextrose (Vancomycin/D5W) 275 ml @ 183.708 mls/hr Q8HR@0300,1100,1900 IVPB 10/19/16 19:00 10/24/16 18:59 10/20/16 11:06 Teofilo Chapa M.D. Oct 20, 2016 14:32
--- NOTE | 2016-10-20 15:20 | General Progress Note ---
Assessment/Plan Status: stable - from renal stand Status Narrative Na 133 Assessment/Plan Primary Impression: Shortness of breath Additional Impressions: Urinary tract infection Hyponatremia Quadriplegia, unspecified Plan: Add Uric Acid and Phos DC IV continue as is- Monitor lytes per consultants Subjective ROS Limited/Unobtainable: No Constitutional: Reports: malaise Allergies: Coded Allergies: No Known Allergies (Unverified , 10/16/16) Objective Last 24 Hour Vital Signs Date Time Temp Pulse Resp B/P Pulse Ox O2 Delivery O2 Flow Rate FiO2 10/20/16 12:00 98.0 80 18 110/68 96 Nasal Cannula 3.0 10/20/16 08:00 98.2 81 18 94 10/20/16 07:21 Nasal Cannula 4.0 10/20/16 06:58 96 Nasal Cannula 4.0 10/20/16 04:00 99.3 63 18 125/73 97 Nasal Cannula 3.0 10/20/16 00:00 99.9 76 18 95/64 94 Nasal Cannula 4.0 10/19/16 20:00 97.9 102 20 129/66 92 Nasal Cannula 4.0 10/19/16 19:37 90 20 98 Nasal Cannula 4.0 36 10/19/16 19:26 95 Nasal Cannula 4.0 36 10/19/16 19:26 91 20 96 Nasal Cannula 4.0 36 10/19/16 19:26 Nasal Cannula 4.0 36 10/19/16 16:33 97.9 20 104/68 91 Nasal Cannula 5.0 Intake and Output 10/19/16 10/20/16 19:00 07:00 Intake Total 660.000 ml Output Total 1350 ml 500 ml Balance -1350 ml 160.000 ml IV Total 660.000 ml Output Urine Total 1350 ml 500 ml Laboratory Tests 10/20/16 06:45: White Blood Count 4.7L, Red Blood Count 3.94L, Hemoglobin 13.0, Hematocrit 37.9 , Mean Corpuscular Volume 96, Mean Corpuscular Hemoglobin 33.0H, Mean Corpuscular Hemoglobin Concent 34.3, Red Cell Distribution Width 11.2L, Platelet Count 273, Mean Platelet Volume 5.0L, Neutrophils (%) (Auto) 64.4, Lymphocytes (%) (Auto) 22.4, Monocytes (%) (Auto) 9.0, Eosinophils (%) (Auto) 3.2H, Basophils (%) (Auto) 1.0, Sodium Level 133L, Potassium Level 4.1, Chloride Level 99, Carbon Dioxide Level 23, Anion Gap 11, Blood Urea Nitrogen 4L , Creatinine 0.4L, Estimat Glomerular Filtration Rate > 60, Glucose Level 163H, Calcium Level 8.2L Height (Feet): 5 Height (Inches): 2.00 Weight (Pounds): 149 General Appearance: no apparent distress Objective other PE not changed TENNILLE HEATH Oct 20, 2016 15:20
[2016-10-20 15:42] LABS: PHOSPHORUS 2.6 mg/dL (2.5-4.8); URIC ACID 3.8 mg/dL (3.0-7.5)
[2016-10-20 16:00] VITALS: BP 125/78
[2016-10-20] MEDS: DuoNeb 0.5-3(2.5)mg/3ml neb HHN PRN (16:54)
--- NOTE | 2016-10-20 19:31 | Pulmonology Progress Note ---
Assessment/Plan Problems: (1) Purulent bronchitis (2) Quadriplegia, unspecified Assessment/Plan respiratory treatment IV antibiotics antitussives chest pt improving gradually ok to go ho home from my point of view Subjective ROS Limited/Unobtainable: No Allergies: Coded Allergies: No Known Allergies (Unverified , 10/16/16) Objective Last 24 Hour Vital Signs Date Time Temp Pulse Resp B/P Pulse Ox O2 Delivery O2 Flow Rate FiO2 10/20/16 17:06 88 20 92 Nasal Cannula 4.0 36 10/20/16 16:55 71 18 92 Nasal Cannula 4.0 10/20/16 16:00 98.8 72 18 125/78 94 Room Air 10/20/16 12:00 98.0 80 18 110/68 96 Nasal Cannula 3.0 10/20/16 08:00 98.2 81 18 94 10/20/16 07:21 Nasal Cannula 4.0 10/20/16 06:58 96 Nasal Cannula 4.0 10/20/16 04:00 99.3 63 18 125/73 97 Nasal Cannula 3.0 10/20/16 00:00 99.9 76 18 95/64 94 Nasal Cannula 4.0 10/19/16 20:00 97.9 102 20 129/66 92 Nasal Cannula 4.0 10/19/16 19:37 90 20 98 Nasal Cannula 4.0 36 Intake and Output 10/19/16 10/20/16 19:00 07:00 Intake Total 770.000 ml Output Total 1350 ml 500 ml Balance -1350 ml 270.000 ml IV Total 770.000 ml Output Urine Total 1350 ml 500 ml Objective General Appearance: WD/WN HEENT: normocephalic Respiratory/Chest: chest wall non-tender, lungs clear Cardiovascular: normal peripheral pulses, normal rate Abdomen: normal bowel sounds, soft, non tender Extremities: no cyanosis, other - effusion in both knees Skin: no rash General Appearance: WD/WN Microbiology Date/Time Source Procedure Growth Status 10/18/16 11:50 Sputum Gram Stain - Final Complete 10/18/16 11:50 Sputum Sputum Culture - Final NORMAL UPPER RESPIRATORY WHITNEY AT 48 ... Complete Laboratory Tests 10/20/16 06:45: White Blood Count 4.7L, Red Blood Count 3.94L, Hemoglobin 13.0, Hematocrit 37.9 , Mean Corpuscular Volume 96, Mean Corpuscular Hemoglobin 33.0H, Mean Corpuscular Hemoglobin Concent 34.3, Red Cell Distribution Width 11.2L, Platelet Count 273, Mean Platelet Volume 5.0L, Neutrophils (%) (Auto) 64.4, Lymphocytes (%) (Auto) 22.4, Monocytes (%) (Auto) 9.0, Eosinophils (%) (Auto) 3.2H, Basophils (%) (Auto) 1.0, Sodium Level 133L, Potassium Level 4.1, Chloride Level 99, Carbon Dioxide Level 23, Anion Gap 11, Blood Urea Nitrogen 4L , Creatinine 0.4L, Estimat Glomerular Filtration Rate > 60, Glucose Level 163H, Uric Acid 3.8, Calcium Level 8.2L, Phosphorus Level 2.6 10/20/16 15:00: Urine Osmolality [Pending], Urine Random Sodium 33 10/20/16 18:10: Vancomycin Level Trough 17.0H Current Medications Medications (Trade) Dose Ordered Sig/Sara Route PRN Reason Start Time Stop Time Status Last Admin Dose Admin Acetaminophen (Tylenol) 650 mg Q4H PRN ORAL Temp > 100.5 10/19/16 10:22 11/17/16 20:59 Albuterol/ Ipratropium (DuoNeb 0.5-3(2.5)mg/3ml) 3 ml Q4H PRN HHN Shortness of Breath 10/18/16 21:00 10/23/16 20:59 10/20/16 16:54 Bisacodyl (Dulcolax) 5 mg DAILYPRN PRN ORAL Constipation 10/19/16 09:00 11/18/16 08:59 Bisacodyl (Dulcolax) 10 mg DAILYPRN PRN RECTAL Constipation 10/19/16 10:30 11/18/16 10:29 10/19/16 11:21 Cefepime HCl 2 gm/ Dextrose 110 ml @ 220 mls/hr Q12HR@0600,1800 IVPB 10/19/16 18:30 10/26/16 18:29 10/20/16 17:23 Docusate Sodium (Colace) 100 mg BID ORAL 10/19/16 09:00 11/18/16 08:59 10/20/16 17:49 Heparin Sodium (Porcine) (Heparin 5000 units/ml) 5,000 units EVERY 12 HOURS SUBQ 10/18/16 21:00 11/17/16 20:59 Naproxen (Naprosyn) 375 mg BIDPRN PRN ORAL pain 10/19/16 10:30 11/18/16 10:29 10/19/16 12:38 Polyethylene Glycol (Miralax) 17 gm BEDTIME ORAL 10/20/16 21:00 11/19/16 20:59 Promethazine HCl/ Codeine (Phenergan with Codeine) 5 ml Q4H PRN ORAL For Cough 10/18/16 21:30 11/17/16 21:29 Ranitidine HCl (Zantac) 150 mg TWICE A DAY ORAL 10/19/16 09:00 11/18/16 08:59 10/20/16 17:17 Vancomycin HCl 1 ea 1 ea DAILY PRN MISC Per rx protocol 10/19/16 17:00 11/18/16 16:59 Vancomycin HCl/ Dextrose (Vancomycin/D5W) 275 ml @ 183.708 mls/hr Q8HR@0300,1100,1900 IVPB 10/19/16 19:00 10/24/16 18:59 10/20/16 18:48 SANJU TAYLOR Oct 20, 2016 19:31
[2016-10-20 20:00] VITALS: BP 126/79
[2016-10-20] MEDS: Miralax 17gm pkt ORAL SCH (21:00)
--- NOTE | 2016-10-20 22:09 | General Progress Note ---
Assessment/Plan Problem List: (1) Quadriplegia, unspecified ICD Codes: G82.50 - Quadriplegia, unspecified SNOMED: 07845901 (2) Urinary tract infection ICD Codes: N39.0 - Urinary tract infection, site not specified SNOMED: 13841866 Status: progressing Assessment/Plan uti quadriplegia afebrile vitals stable reviewed chart and labs Subjective ROS Limited/Unobtainable: Yes Allergies: Coded Allergies: No Known Allergies (Unverified , 10/16/16) Objective Last 24 Hour Vital Signs Date Time Temp Pulse Resp B/P Pulse Ox O2 Delivery O2 Flow Rate FiO2 10/20/16 20:19 86 Nasal Cannula 4.0 10/20/16 20:19 Nasal Cannula 4.0 36 10/20/16 20:00 98.6 87 20 126/79 97 Nasal Cannula 2.0 10/20/16 17:06 88 20 92 Nasal Cannula 4.0 36 10/20/16 16:55 71 18 92 Nasal Cannula 4.0 10/20/16 16:00 98.8 72 18 125/78 94 Room Air 10/20/16 12:00 98.0 80 18 110/68 96 Nasal Cannula 3.0 10/20/16 08:00 98.2 81 18 94 10/20/16 07:21 Nasal Cannula 4.0 10/20/16 06:58 96 Nasal Cannula 4.0 10/20/16 04:00 99.3 63 18 125/73 97 Nasal Cannula 3.0 10/20/16 00:00 99.9 76 18 95/64 94 Nasal Cannula 4.0 Intake and Output 10/19/16 10/20/16 19:00 07:00 Intake Total 770.000 ml Output Total 1350 ml 500 ml Balance -1350 ml 270.000 ml IV Total 770.000 ml Output Urine Total 1350 ml 500 ml Laboratory Tests 10/20/16 06:45: White Blood Count 4.7L, Red Blood Count 3.94L, Hemoglobin 13.0, Hematocrit 37.9 , Mean Corpuscular Volume 96, Mean Corpuscular Hemoglobin 33.0H, Mean Corpuscular Hemoglobin Concent 34.3, Red Cell Distribution Width 11.2L, Platelet Count 273, Mean Platelet Volume 5.0L, Neutrophils (%) (Auto) 64.4, Lymphocytes (%) (Auto) 22.4, Monocytes (%) (Auto) 9.0, Eosinophils (%) (Auto) 3.2H, Basophils (%) (Auto) 1.0, Sodium Level 133L, Potassium Level 4.1, Chloride Level 99, Carbon Dioxide Level 23, Anion Gap 11, Blood Urea Nitrogen 4L , Creatinine 0.4L, Estimat Glomerular Filtration Rate > 60, Glucose Level 163H, Uric Acid 3.8, Calcium Level 8.2L, Phosphorus Level 2.6 10/20/16 15:00: Urine Osmolality [Pending], Urine Random Sodium 33 10/20/16 18:10: Vancomycin Level Trough 17.0H Height (Feet): 5 Height (Inches): 2.00 Weight (Pounds): 149 Neck: normal inspection Respiratory/Chest: lungs clear Lisseth Bose MD Oct 20, 2016 22:09
[2016-10-21] VITALS: BP 120/75
[2016-10-21] MEDS: Naproxen 375mg tab ORAL PRN (02:17)
[2016-10-21] MEDS: Vancomycin 1gm in Dextrose 275ml IVPB SCH ×3 (02:36→19:30)
[2016-10-21 04:00] VITALS: BP 110/59
[2016-10-21] MEDS: DuoNeb 0.5-3(2.5)mg/3ml neb HHN PRN (04:37)
[2016-10-21] MEDS: Cefepime HCl 2 GM in D5W 110 ML IVPB SCH ×2 (05:26→17:04)
[2016-10-21 08:00] VITALS: BP 92/50
--- NOTE | 2016-10-21 08:28 | General Progress Note ---
Assessment/Plan Problem List: (1) Constipation ICD Codes: K59.00 - Constipation, unspecified SNOMED: 22665561 (2) Urinary tract infection ICD Codes: N39.0 - Urinary tract infection, site not specified SNOMED: 93345856 (3) Quadriplegia, unspecified ICD Codes: G82.50 - Quadriplegia, unspecified SNOMED: 19696415 Assessment/Plan colace miralax prn dulcolax on regular diet fu Subjective ROS Limited/Unobtainable: Yes Allergies: Coded Allergies: No Known Allergies (Unverified , 10/16/16) Subjective no event Objective Last 24 Hour Vital Signs Date Time Temp Pulse Resp B/P Pulse Ox O2 Delivery O2 Flow Rate FiO2 10/21/16 04:45 93 20 98 Nasal Cannula 4.0 36 10/21/16 04:35 101 20 96 Nasal Cannula 4.0 36 10/21/16 04:00 98.2 94 20 110/59 99 Nasal Cannula 2.0 10/21/16 00:00 98.4 65 20 120/75 99 Nasal Cannula 2.0 10/20/16 20:19 86 Nasal Cannula 4.0 10/20/16 20:19 Nasal Cannula 4.0 36 10/20/16 20:00 98.6 87 20 126/79 97 Nasal Cannula 2.0 10/20/16 17:06 88 20 92 Nasal Cannula 4.0 36 10/20/16 16:55 71 18 92 Nasal Cannula 4.0 10/20/16 16:00 98.8 72 18 125/78 94 Room Air 10/20/16 12:00 98.0 80 18 110/68 96 Nasal Cannula 3.0 Intake and Output 10/20/16 10/21/16 19:00 07:00 Intake Total 1185 ml 660.000 ml Output Total 2000 ml 1550 ml Balance -815 ml -890.000 ml Intake Oral 800 ml IV Total 385 ml 660.000 ml Output Urine Total 2000 ml 1550 ml Laboratory Tests 10/20/16 15:00: Urine Osmolality [Pending], Urine Random Sodium 33 10/20/16 18:10: Vancomycin Level Trough 17.0H Height (Feet): 5 Height (Inches): 2.00 Weight (Pounds): 149 General Appearance: no apparent distress EENT: normal ENT inspection Neck: supple Cardiovascular: normal rate Respiratory/Chest: decreased breath sounds Abdomen: normal bowel sounds, non tender, soft Extremities: non-tender LEVAR WHALEY Oct 21, 2016 08:28
[2016-10-21] MEDS: Heparin 5000 units/ml inj SUBQ SCH ×2 (09:00→21:00)
[2016-10-21] MEDS: Docusate 100mg cap ORAL SCH ×2 (09:52→17:03)
--- NOTE | 2016-10-21 09:53 | General Progress Note ---
Assessment/Plan Status: stable Assessment/Plan Primary Impression: Shortness of breath Additional Impressions: Urinary tract infection Hyponatremia Quadriplegia, unspecified Plan: No labs today No IV continue as is- Monitor lytes per consultants Subjective ROS Limited/Unobtainable: No Constitutional: Reports: malaise Allergies: Coded Allergies: No Known Allergies (Unverified , 10/16/16) Objective Last 24 Hour Vital Signs Date Time Temp Pulse Resp B/P Pulse Ox O2 Delivery O2 Flow Rate FiO2 10/21/16 07:25 Nasal Cannula 4.0 10/21/16 07:24 97 Nasal Cannula 4.0 10/21/16 04:45 93 20 98 Nasal Cannula 4.0 36 10/21/16 04:35 101 20 96 Nasal Cannula 4.0 36 10/21/16 04:00 98.2 94 20 110/59 99 Nasal Cannula 2.0 10/21/16 00:00 98.4 65 20 120/75 99 Nasal Cannula 2.0 10/20/16 20:19 86 Nasal Cannula 4.0 10/20/16 20:19 Nasal Cannula 4.0 36 10/20/16 20:00 98.6 87 20 126/79 97 Nasal Cannula 2.0 10/20/16 17:06 88 20 92 Nasal Cannula 4.0 36 10/20/16 16:55 71 18 92 Nasal Cannula 4.0 10/20/16 16:00 98.8 72 18 125/78 94 Room Air 10/20/16 12:00 98.0 80 18 110/68 96 Nasal Cannula 3.0 Intake and Output 10/20/16 10/21/16 19:00 07:00 Intake Total 1185 ml 660.000 ml Output Total 2000 ml 1550 ml Balance -815 ml -890.000 ml Intake Oral 800 ml IV Total 385 ml 660.000 ml Output Urine Total 2000 ml 1550 ml Laboratory Tests 10/20/16 15:00: Urine Osmolality [Pending], Urine Random Sodium 33 10/20/16 18:10: Vancomycin Level Trough 17.0H Height (Feet): 5 Height (Inches): 2.00 Weight (Pounds): 149 General Appearance: no apparent distress Objective other PE not changed TENNILLE HEATH Oct 21, 2016 09:53
[2016-10-21] MEDS ORDERED: NS 550ML IV ONE (10:21)
[2016-10-21] MEDS ORDERED: Tubing IV Secondary IV ONE (10:21)
[2016-10-21] MEDS ORDERED: NS 275ml ONE (10:21)
--- NOTE | 2016-10-21 10:42 | Infectious Diseases Prog Note ---
Assessment/Plan Problems: (1) LLL pneumonia Assessment & Plan: with parapneumonic effusion, improving on cefepime and vancomycin, will switch to oral levaquin for 5 more days (2) Urinary tract infection Assessment & Plan: with E coli and proteus mirabilis , on cefepime for 7 days, will switch to levaquin (3) Quadriplegia, unspecified Assessment & Plan: continue supportive care (4) Hyponatremia Assessment & Plan: recommend fluids restriction and close monitor of sodium level (5) SOB (shortness of breath) Assessment & Plan: suspect pneumonia related, which showed up on repeated CXR , now on antibiotics , legs doppler is negative for DVT. Subjective Constitutional: Reports: no symptoms HEENT: Reports: no symptoms Respiratory: Reports: no symptoms Breasts: Reports: no symptoms Cardiovascular: Reports: no symptoms Gastrointestinal/Abdominal: Reports: no symptoms Genitourinary: Reports: no symptoms Neurologic: Reports: no symptoms Psychiatric: Reports: no symptoms Skin: Reports: no symptoms Endocrine: Reports: no symptoms Hematologic: Reports: no symptoms Allergies: Coded Allergies: No Known Allergies (Unverified , 10/16/16) Objective Vital Signs Last 24 Hour Vital Signs Date Time Temp Pulse Resp B/P Pulse Ox O2 Delivery O2 Flow Rate FiO2 10/21/16 08:00 97.9 90 20 92/50 94 Room Air 10/21/16 07:25 Nasal Cannula 4.0 10/21/16 07:24 97 Nasal Cannula 4.0 10/21/16 04:45 93 20 98 Nasal Cannula 4.0 36 10/21/16 04:35 101 20 96 Nasal Cannula 4.0 36 10/21/16 04:00 98.2 94 20 110/59 99 Nasal Cannula 2.0 10/21/16 00:00 98.4 65 20 120/75 99 Nasal Cannula 2.0 10/20/16 20:19 86 Nasal Cannula 4.0 10/20/16 20:19 Nasal Cannula 4.0 36 10/20/16 20:00 98.6 87 20 126/79 97 Nasal Cannula 2.0 10/20/16 17:06 88 20 92 Nasal Cannula 4.0 36 10/20/16 16:55 71 18 92 Nasal Cannula 4.0 10/20/16 16:00 98.8 72 18 125/78 94 Room Air 10/20/16 12:00 98.0 80 18 110/68 96 Nasal Cannula 3.0 Height (Feet): 5 Height (Inches): 2.00 Weight (Pounds): 149 General Appearance: WD/WN, no acute distress HEENT: normocephalic, atraumatic, anicteric, mucous membranes moist Respiratory/Chest: chest wall non-tender, lungs clear, normal breath sounds, no respiratory distress, no accessory muscle use Cardiovascular: normal peripheral pulses, normal rate, regular rhythm, no JVD Abdomen: normal bowel sounds, soft, non tender, no organomegaly, non distended , no mass Extremities: no cyanosis, no clubbing Skin: no rash, no lesions, ulcers Neurologic/Psychiatric: alert, oriented x 3 Musculoskeletal: normal muscle bulk, no effusion Microbiology Date/Time Source Procedure Growth Status 10/18/16 11:50 Sputum Gram Stain - Final Complete 10/18/16 11:50 Sputum Sputum Culture - Final NORMAL UPPER RESPIRATORY WHITNEY AT 48 ... Complete Laboratory Tests Test 10/20/16 15:00 10/20/16 18:10 Urine Osmolality Pending Urine Random Sodium 33 mmol/L Vancomycin Level Trough 17.0 ug/mL (5.0-12.0) H Current Medications Medications (Trade) Dose Ordered Sig/Sara Route PRN Reason Start Time Stop Time Status Last Admin Dose Admin Acetaminophen (Tylenol) 650 mg Q4H PRN ORAL Temp > 100.5 10/19/16 10:22 11/17/16 20:59 Albuterol/ Ipratropium (DuoNeb 0.5-3(2.5)mg/3ml) 3 ml Q4H PRN HHN Shortness of Breath 10/18/16 21:00 10/23/16 20:59 10/21/16 04:37 Bisacodyl (Dulcolax) 5 mg DAILYPRN PRN ORAL Constipation 10/19/16 09:00 11/18/16 08:59 Bisacodyl (Dulcolax) 10 mg DAILYPRN PRN RECTAL Constipation 10/19/16 10:30 11/18/16 10:29 10/21/16 09:48 Cefepime HCl 2 gm/ Dextrose 110 ml @ 220 mls/hr Q12HR@0600,1800 IVPB 10/19/16 18:30 10/26/16 18:29 10/21/16 05:26 Docusate Sodium (Colace) 100 mg BID ORAL 10/19/16 09:00 11/18/16 08:59 10/21/16 09:52 Heparin Sodium (Porcine) (Heparin 5000 units/ml) 5,000 units EVERY 12 HOURS SUBQ 10/18/16 21:00 11/17/16 20:59 Naproxen (Naprosyn) 375 mg BIDPRN PRN ORAL pain 10/19/16 10:30 11/18/16 10:29 10/21/16 02:17 Polyethylene Glycol (Miralax) 17 gm BEDTIME ORAL 10/20/16 21:00 11/19/16 20:59 Promethazine HCl/ Codeine (Phenergan with Codeine) 5 ml Q4H PRN ORAL For Cough 10/18/16 21:30 11/17/16 21:29 Ranitidine HCl (Zantac) 150 mg TWICE A DAY ORAL 10/19/16 09:00 11/18/16 08:59 10/21/16 09:52 Vancomycin HCl 1 ea 1 ea DAILY PRN MISC Per rx protocol 10/19/16 17:00 11/18/16 16:59 Vancomycin HCl/ Dextrose (Vancomycin/D5W) 275 ml @ 183.708 mls/hr Q8HR@0300,1100,1900 IVPB 10/19/16 19:00 10/24/16 18:59 10/21/16 02:36 Teofilo Chapa M.D. Oct 21, 2016 10:42
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
--- NOTE | 2016-10-21 15:40 | Pulmonology Progress Note ---
Assessment/Plan Problems: (1) Purulent bronchitis (2) Quadriplegia, unspecified Assessment/Plan respiratory treatment IV antibiotics antitussives chest pt improving gradually ok to go ho home from my point of view Subjective ROS Limited/Unobtainable: No HEENT: Repors: no symptoms Allergies: Coded Allergies: No Known Allergies (Unverified , 10/16/16) Objective Last 24 Hour Vital Signs Date Time Temp Pulse Resp B/P Pulse Ox O2 Delivery O2 Flow Rate FiO2 10/21/16 08:00 97.9 90 20 92/50 94 Room Air 10/21/16 07:25 Nasal Cannula 4.0 10/21/16 07:24 97 Nasal Cannula 4.0 10/21/16 04:45 93 20 98 Nasal Cannula 4.0 36 10/21/16 04:35 101 20 96 Nasal Cannula 4.0 36 10/21/16 04:00 98.2 94 20 110/59 99 Nasal Cannula 2.0 10/21/16 00:00 98.4 65 20 120/75 99 Nasal Cannula 2.0 10/20/16 20:19 86 Nasal Cannula 4.0 10/20/16 20:19 Nasal Cannula 4.0 36 10/20/16 20:00 98.6 87 20 126/79 97 Nasal Cannula 2.0 10/20/16 17:06 88 20 92 Nasal Cannula 4.0 36 10/20/16 16:55 71 18 92 Nasal Cannula 4.0 10/20/16 16:00 98.8 72 18 125/78 94 Room Air Intake and Output 10/20/16 10/21/16 19:00 07:00 Intake Total 1185 ml 660.000 ml Output Total 2000 ml 1550 ml Balance -815 ml -890.000 ml Intake Oral 800 ml IV Total 385 ml 660.000 ml Output Urine Total 2000 ml 1550 ml Objective General Appearance: WD/WN HEENT: normocephalic Respiratory/Chest: chest wall non-tender, lungs clear Cardiovascular: normal peripheral pulses, normal rate Abdomen: normal bowel sounds, soft, non tender Extremities: no cyanosis, other - effusion in both knees Skin: no rash Laboratory Tests 10/20/16 18:10: Vancomycin Level Trough 17.0H Current Medications Medications (Trade) Dose Ordered Sig/Sara Route PRN Reason Start Time Stop Time Status Last Admin Dose Admin Acetaminophen (Tylenol) 650 mg Q4H PRN ORAL Temp > 100.5 10/19/16 10:22 11/17/16 20:59 Albuterol/ Ipratropium (DuoNeb 0.5-3(2.5)mg/3ml) 3 ml Q4H PRN HHN Shortness of Breath 10/18/16 21:00 10/23/16 20:59 10/21/16 04:37 Bisacodyl (Dulcolax) 5 mg DAILYPRN PRN ORAL Constipation 10/19/16 09:00 11/18/16 08:59 Bisacodyl (Dulcolax) 10 mg DAILYPRN PRN RECTAL Constipation 10/19/16 10:30 11/18/16 10:29 10/21/16 09:48 Cefepime HCl 2 gm/ Dextrose 110 ml @ 220 mls/hr Q12HR@0600,1800 IVPB 10/19/16 18:30 10/26/16 18:29 10/21/16 05:26 Docusate Sodium (Colace) 100 mg BID ORAL 10/19/16 09:00 11/18/16 08:59 10/21/16 09:52 Heparin Sodium (Porcine) (Heparin 5000 units/ml) 5,000 units EVERY 12 HOURS SUBQ 10/18/16 21:00 11/17/16 20:59 Lidocaine (Lidoderm 5% PATCH) 1 patch DAILY TDERMAL 10/21/16 12:00 11/20/16 11:59 10/21/16 12:35 Polyethylene Glycol (Miralax) 17 gm BEDTIME ORAL 10/20/16 21:00 11/19/16 20:59 Promethazine HCl/ Codeine (Phenergan with Codeine) 5 ml Q4H PRN ORAL For Cough 10/18/16 21:30 11/17/16 21:29 Ranitidine HCl (Zantac) 150 mg TWICE A DAY ORAL 10/19/16 09:00 11/18/16 08:59 10/21/16 09:52 Vancomycin HCl 1 ea 1 ea DAILY PRN MISC Per rx protocol 10/19/16 17:00 11/18/16 16:59 Vancomycin HCl/ Dextrose (Vancomycin/D5W) 275 ml @ 183.708 mls/hr Q8HR@0300,1100,1900 IVPB 10/19/16 19:00 10/24/16 18:59 10/21/16 11:04 SANJU TAYLOR Oct 21, 2016 15:40
[2016-10-21 16:00] VITALS: BP 96/58
[2016-10-21 20:00] VITALS: BP 114/76
[2016-10-21] MEDS: Miralax 17gm pkt ORAL SCH (21:00)
--- NOTE | 2016-10-21 21:24 | General Progress Note ---
Assessment/Plan Problem List: (1) Quadriplegia, unspecified ICD Codes: G82.50 - Quadriplegia, unspecified SNOMED: 21886245 (2) Urinary tract infection ICD Codes: N39.0 - Urinary tract infection, site not specified SNOMED: 44532466 Status: progressing Assessment/Plan uti improved quadriplegia afebrile will dc in am abx per id Subjective ROS Limited/Unobtainable: Yes Allergies: Coded Allergies: No Known Allergies (Unverified , 10/16/16) Objective Last 24 Hour Vital Signs Date Time Temp Pulse Resp B/P Pulse Ox O2 Delivery O2 Flow Rate FiO2 10/21/16 20:25 Nasal Cannula 2.0 28 10/21/16 20:25 98 Nasal Cannula 2.0 28 10/21/16 20:25 89 14 Nasal Cannula 2.0 28 10/21/16 16:00 98.0 88 20 96/58 96 Nasal Cannula 3.0 10/21/16 08:00 97.9 90 20 92/50 94 Room Air 10/21/16 07:25 Nasal Cannula 4.0 10/21/16 07:24 97 Nasal Cannula 4.0 10/21/16 04:45 93 20 98 Nasal Cannula 4.0 36 10/21/16 04:35 101 20 96 Nasal Cannula 4.0 36 10/21/16 04:00 98.2 94 20 110/59 99 Nasal Cannula 2.0 10/21/16 00:00 98.4 65 20 120/75 99 Nasal Cannula 2.0 Intake and Output 10/20/16 10/21/16 19:00 07:00 Intake Total 1185 ml 660.000 ml Output Total 2000 ml 1550 ml Balance -815 ml -890.000 ml Intake Oral 800 ml IV Total 385 ml 660.000 ml Output Urine Total 2000 ml 1550 ml Height (Feet): 5 Height (Inches): 2.00 Weight (Pounds): 149 Respiratory/Chest: lungs clear Abdomen: non tender Lisseth Bose MD Oct 21, 2016 21:24
[2016-10-22] VITALS: BP 88/60
[2016-10-22] MEDS: Vancomycin 1gm in Dextrose 275ml IVPB SCH ×2 (02:55→11:15)
[2016-10-22 04:00] VITALS: BP 111/72
[2016-10-22] MEDS: Cefepime HCl 2 GM in D5W 110 ML IVPB SCH (05:43)
[2016-10-22] MEDS: DuoNeb 0.5-3(2.5)mg/3ml neb HHN PRN (07:54)
[2016-10-22 08:00] VITALS: BP 138/94
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
[2016-10-22] MEDS: Heparin 5000 units/ml inj SUBQ SCH (09:00)
[2016-10-22] MEDS: Docusate 100mg cap ORAL SCH (09:41)
--- NOTE | 2016-10-22 11:19 | General Progress Note ---
Assessment/Plan Status: stable Status Narrative stable from renal stand Assessment/Plan Primary Impression: Shortness of breath Additional Impressions: Urinary tract infection Hyponatremia Quadriplegia, unspecified Plan: No labs today No IV continue as is- Monitor lytes per consultants Subjective ROS Limited/Unobtainable: No Allergies: Coded Allergies: No Known Allergies (Unverified , 10/16/16) Objective Last 24 Hour Vital Signs Date Time Temp Pulse Resp B/P Pulse Ox O2 Delivery O2 Flow Rate FiO2 10/22/16 08:00 97.5 90 20 138/94 93 Nasal Cannula 2.0 10/22/16 07:59 92 20 98 Nasal Cannula 3.0 32 10/22/16 07:57 Nasal Cannula 3.0 10/22/16 07:50 87 20 94 Nasal Cannula 3.0 32 10/22/16 07:48 94 Nasal Cannula 3.0 32 10/22/16 04:00 97.2 70 18 111/72 93 Nasal Cannula 3.0 10/22/16 00:00 97.7 76 18 88/60 93 Nasal Cannula 3.0 10/21/16 20:25 Nasal Cannula 2.0 28 10/21/16 20:25 98 Nasal Cannula 2.0 28 10/21/16 20:25 89 14 Nasal Cannula 2.0 28 10/21/16 20:00 97.2 81 20 114/76 96 Nasal Cannula 3.0 10/21/16 16:00 98.0 88 20 96/58 96 Nasal Cannula 3.0 Intake and Output 10/21/16 10/22/16 19:00 07:00 Intake Total 1275.000 ml 551.124 ml Output Total 1600 ml Balance -325.000 ml 551.124 ml Intake Oral 1000 ml IV Total 275.000 ml 551.124 ml Output Urine Total 1600 ml Height (Feet): 5 Height (Inches): 2.00 Weight (Pounds): 149 General Appearance: no apparent distress Objective other PE not changed TENNILLE HEATH Oct 22, 2016 11:19
[2016-10-22 12:00] VITALS: BP 143/97
--- NOTE | 2016-10-22 13:24 | GI Progress Note ---
Assessment/Plan Problems: (1) Constipation ICD Codes: K59.00 - Constipation, unspecified SNOMED: 44331989 (2) Quadriplegia, unspecified ICD Codes: G82.50 - Quadriplegia, unspecified SNOMED: 51870917 Status: stable Status Narrative Discussed with Dr. Balderas. Assessment/Plan colace miralax prn dulcolax on regular diet fu labs Subjective Gastrointestinal/Abdominal: Reports: no symptoms Subjective had BM Objective Last 24 Hour Vital Signs Date Time Temp Pulse Resp B/P Pulse Ox O2 Delivery O2 Flow Rate FiO2 10/22/16 12:00 97.7 77 20 143/97 96 Nasal Cannula 1.0 10/22/16 08:00 97.5 90 20 138/94 93 Nasal Cannula 2.0 10/22/16 07:59 92 20 98 Nasal Cannula 3.0 32 10/22/16 07:57 Nasal Cannula 3.0 10/22/16 07:50 87 20 94 Nasal Cannula 3.0 32 10/22/16 07:48 94 Nasal Cannula 3.0 32 10/22/16 04:00 97.2 70 18 111/72 93 Nasal Cannula 3.0 10/22/16 00:00 97.7 76 18 88/60 93 Nasal Cannula 3.0 10/21/16 20:25 Nasal Cannula 2.0 28 10/21/16 20:25 98 Nasal Cannula 2.0 28 10/21/16 20:25 89 14 Nasal Cannula 2.0 28 10/21/16 20:00 97.2 81 20 114/76 96 Nasal Cannula 3.0 10/21/16 16:00 98.0 88 20 96/58 96 Nasal Cannula 3.0 Intake and Output 10/21/16 10/22/16 19:00 07:00 Intake Total 1275.000 ml 551.124 ml Output Total 1600 ml Balance -325.000 ml 551.124 ml Intake Oral 1000 ml IV Total 275.000 ml 551.124 ml Output Urine Total 1600 ml Height (Feet): 5 Height (Inches): 2.00 Weight (Pounds): 149 General Appearance: no apparent distress, alert Cardiovascular: normal rate Respiratory/Chest: normal breath sounds, no respiratory distress, other - NC Abdominal Exam: normal bowel sounds, non tender, soft Zulma Shi Gaviota Oct 22, 2016 13:24
--- NOTE | 2016-10-22 13:41 | Wound Nurse Progress Note ---
Wound RN Progress Note Wound Consult sacral wound reassessed noted good progress resolving .Decrease in size, 0.2cmx0.2cmx superficial. local wound care effective. continue to offload site,turn and repositon, keep clean and dry.provide local wound care as ordered. PALLAVI FISHER Oct 22, 2016 13:41
--- NOTE | 2016-10-22 14:19 | Pulmonology Progress Note ---
Assessment/Plan Problems: (1) Purulent bronchitis (2) Quadriplegia, unspecified Assessment/Plan respiratory treatment IV antibiotics antitussives chest pt improving gradually ok to go ho home from my point of view prescription for albuterol given Subjective ROS Limited/Unobtainable: No Constitutional: Reports: no symptoms HEENT: Repors: no symptoms Respiratory: Reports: no symptoms Allergies: Coded Allergies: No Known Allergies (Unverified , 10/16/16) Objective Last 24 Hour Vital Signs Date Time Temp Pulse Resp B/P Pulse Ox O2 Delivery O2 Flow Rate FiO2 10/22/16 12:00 97.7 77 20 143/97 96 Nasal Cannula 1.0 10/22/16 08:00 97.5 90 20 138/94 93 Nasal Cannula 2.0 10/22/16 07:59 92 20 98 Nasal Cannula 3.0 32 10/22/16 07:57 Nasal Cannula 3.0 10/22/16 07:50 87 20 94 Nasal Cannula 3.0 32 10/22/16 07:48 94 Nasal Cannula 3.0 32 10/22/16 04:00 97.2 70 18 111/72 93 Nasal Cannula 3.0 10/22/16 00:00 97.7 76 18 88/60 93 Nasal Cannula 3.0 10/21/16 20:25 Nasal Cannula 2.0 28 10/21/16 20:25 98 Nasal Cannula 2.0 28 10/21/16 20:25 89 14 Nasal Cannula 2.0 28 10/21/16 20:00 97.2 81 20 114/76 96 Nasal Cannula 3.0 10/21/16 16:00 98.0 88 20 96/58 96 Nasal Cannula 3.0 Intake and Output 10/21/16 10/22/16 19:00 07:00 Intake Total 1275.000 ml 551.124 ml Output Total 1600 ml Balance -325.000 ml 551.124 ml Intake Oral 1000 ml IV Total 275.000 ml 551.124 ml Output Urine Total 1600 ml Objective General Appearance: WD/WN HEENT: normocephalic Respiratory/Chest: chest wall non-tender, lungs clear Cardiovascular: normal peripheral pulses, normal rate Abdomen: normal bowel sounds, soft, non tender Extremities: no cyanosis, other - effusion in both knees Skin: no rash Current Medications Medications (Trade) Dose Ordered Sig/Sara Route PRN Reason Start Time Stop Time Status Last Admin Dose Admin Acetaminophen (Tylenol) 650 mg Q4H PRN ORAL Temp > 100.5 10/19/16 10:22 11/17/16 20:59 Albuterol/ Ipratropium (DuoNeb 0.5-3(2.5)mg/3ml) 3 ml Q4H PRN HHN Shortness of Breath 10/18/16 21:00 10/23/16 20:59 10/22/16 07:54 Bisacodyl (Dulcolax) 5 mg DAILYPRN PRN ORAL Constipation 10/19/16 09:00 11/18/16 08:59 Bisacodyl (Dulcolax) 10 mg DAILYPRN PRN RECTAL Constipation 10/19/16 10:30 11/18/16 10:29 10/21/16 09:48 Cefepime HCl 2 gm/ Dextrose 110 ml @ 220 mls/hr Q12HR@0600,1800 IVPB 10/19/16 18:30 10/26/16 18:29 10/22/16 05:43 Docusate Sodium (Colace) 100 mg BID ORAL 10/19/16 09:00 11/18/16 08:59 10/22/16 09:41 Heparin Sodium (Porcine) (Heparin 5000 units/ml) 5,000 units EVERY 12 HOURS SUBQ 10/18/16 21:00 11/17/16 20:59 Lidocaine (Lidoderm 5% PATCH) 1 patch DAILY TDERMAL 10/21/16 12:00 11/20/16 11:59 10/22/16 09:41 Polyethylene Glycol (Miralax) 17 gm BEDTIME ORAL 10/20/16 21:00 11/19/16 20:59 Promethazine HCl/ Codeine (Phenergan with Codeine) 5 ml Q4H PRN ORAL For Cough 10/18/16 21:30 11/17/16 21:29 Ranitidine HCl (Zantac) 150 mg TWICE A DAY ORAL 10/19/16 09:00 11/18/16 08:59 10/22/16 09:41 Vancomycin HCl 1 ea 1 ea DAILY PRN MISC Per rx protocol 10/19/16 17:00 11/18/16 16:59 Vancomycin HCl/ Dextrose (Vancomycin/D5W) 275 ml @ 183.708 mls/hr Q8HR@0300,1100,1900 IVPB 10/19/16 19:00 10/24/16 18:59 10/22/16 11:15 SANJU TAYLOR Oct 22, 2016 14:19
[2016-10-22] MEDS ORDERED: LEVAQUIN500 MG ORAL (15:10)
[2016-10-22] MEDS ORDERED: ALBUTEROL2.5 MG/3 M INH (15:12)
--- NOTE | 2016-10-22 15:40 | Infectious Diseases Prog Note ---
Assessment/Plan Problems: (1) LLL pneumonia Assessment & Plan: with parapneumonic effusion, improving on cefepime and vancomycin, will switch to oral levaquin for 5 more days (2) Urinary tract infection Assessment & Plan: with E coli and proteus mirabilis , on cefepime for 7 days, will switch to levaquin (3) Quadriplegia, unspecified Assessment & Plan: continue supportive care (4) Hyponatremia Assessment & Plan: recommend fluids restriction and close monitor of sodium level (5) SOB (shortness of breath) Assessment & Plan: suspect pneumonia related, which showed up on repeated CXR , now on antibiotics , legs doppler is negative for DVT. Subjective Constitutional: Reports: no symptoms HEENT: Reports: no symptoms Respiratory: Reports: no symptoms Breasts: Reports: no symptoms Cardiovascular: Reports: no symptoms Gastrointestinal/Abdominal: Reports: no symptoms Genitourinary: Reports: no symptoms Neurologic: Reports: no symptoms Psychiatric: Reports: no symptoms Skin: Reports: no symptoms Endocrine: Reports: no symptoms Hematologic: Reports: no symptoms Musculoskeletal: Reports: no symptoms Allergies: Coded Allergies: No Known Allergies (Unverified , 10/16/16) Objective Vital Signs Last 24 Hour Vital Signs Date Time Temp Pulse Resp B/P Pulse Ox O2 Delivery O2 Flow Rate FiO2 10/22/16 12:00 97.7 77 20 143/97 96 Nasal Cannula 1.0 10/22/16 08:00 97.5 90 20 138/94 93 Nasal Cannula 2.0 10/22/16 07:59 92 20 98 Nasal Cannula 3.0 32 10/22/16 07:57 Nasal Cannula 3.0 10/22/16 07:50 87 20 94 Nasal Cannula 3.0 32 10/22/16 07:48 94 Nasal Cannula 3.0 32 10/22/16 04:00 97.2 70 18 111/72 93 Nasal Cannula 3.0 10/22/16 00:00 97.7 76 18 88/60 93 Nasal Cannula 3.0 10/21/16 20:25 Nasal Cannula 2.0 28 10/21/16 20:25 98 Nasal Cannula 2.0 28 10/21/16 20:25 89 14 Nasal Cannula 2.0 28 10/21/16 20:00 97.2 81 20 114/76 96 Nasal Cannula 3.0 10/21/16 16:00 98.0 88 20 96/58 96 Nasal Cannula 3.0 Height (Feet): 5 Height (Inches): 2.00 Weight (Pounds): 149 General Appearance: WD/WN, no acute distress HEENT: normocephalic, atraumatic, anicteric, mucous membranes moist, PERRL, supple, no JVD Respiratory/Chest: chest wall non-tender, lungs clear, normal breath sounds, no respiratory distress, no accessory muscle use Cardiovascular: normal peripheral pulses, normal rate, regular rhythm, no gallop/murmur, no JVD Abdomen: normal bowel sounds, soft, non tender, no organomegaly, non distended , no mass, no scars Extremities: no cyanosis, no clubbing Skin: no rash, no lesions, no ulcers Lymphatic: no neck adenopathy, no groin adenopathy Musculoskeletal: normal muscle bulk, no effusion Current Medications Medications (Trade) Dose Ordered Sig/Sara Route PRN Reason Start Time Stop Time Status Last Admin Dose Admin Acetaminophen (Tylenol) 650 mg Q4H PRN ORAL Temp > 100.5 10/19/16 10:22 11/17/16 20:59 Albuterol/ Ipratropium (DuoNeb 0.5-3(2.5)mg/3ml) 3 ml Q4H PRN HHN Shortness of Breath 10/18/16 21:00 10/23/16 20:59 10/22/16 07:54 Bisacodyl (Dulcolax) 5 mg DAILYPRN PRN ORAL Constipation 10/19/16 09:00 11/18/16 08:59 Bisacodyl (Dulcolax) 10 mg DAILYPRN PRN RECTAL Constipation 10/19/16 10:30 11/18/16 10:29 10/21/16 09:48 Cefepime HCl 2 gm/ Dextrose 110 ml @ 220 mls/hr Q12HR@0600,1800 IVPB 10/19/16 18:30 10/26/16 18:29 10/22/16 05:43 Docusate Sodium (Colace) 100 mg BID ORAL 10/19/16 09:00 11/18/16 08:59 10/22/16 09:41 Heparin Sodium (Porcine) (Heparin 5000 units/ml) 5,000 units EVERY 12 HOURS SUBQ 10/18/16 21:00 11/17/16 20:59 Lidocaine (Lidoderm 5% PATCH) 1 patch DAILY TDERMAL 10/21/16 12:00 11/20/16 11:59 10/22/16 09:41 Polyethylene Glycol (Miralax) 17 gm BEDTIME ORAL 10/20/16 21:00 11/19/16 20:59 Promethazine HCl/ Codeine (Phenergan with Codeine) 5 ml Q4H PRN ORAL For Cough 10/18/16 21:30 11/17/16 21:29 Ranitidine HCl (Zantac) 150 mg TWICE A DAY ORAL 10/19/16 09:00 11/18/16 08:59 10/22/16 09:41 Vancomycin HCl 1 ea 1 ea DAILY PRN MISC Per rx protocol 10/19/16 17:00 11/18/16 16:59 Vancomycin HCl/ Dextrose (Vancomycin/D5W) 275 ml @ 183.708 mls/hr Q8HR@0300,1100,1900 IVPB 10/19/16 19:00 10/24/16 18:59 10/22/16 11:15 Teofilo Chapa M.D. Oct 22, 2016 15:40
[2016-10-22 16:00] VITALS: BP 151/86
--- NOTE | 2016-10-23 08:51 | Discharge Summary ---
Discharge Summary Hospital Course Date of Admission Oct 16, 2016 at 20:44 Date of Discharge Oct 22, 2016 at 16:15 Admitting Diagnosis shortness of breath, hyponatremia HPI Hwa Cesia Yi is a 46 year old female who was admitted on Oct 16, 2016 at 20:44 for Shortness Of Breath, Hyponatremia Hospital Course dc summary #[id number] Discharge Medications Continued Medications: Albuterol Sulfate* (Albuterol Sulfate Hhn*) 2.5 Mg/3 Ml Vial.neb 3 ML INH THREE TIMES A DAY, #100 EA 0 Refills Bisacodyl (Bisacodyl) 10 Mg Supp.rect 10 MG RC QOD, SUPP Levofloxacin* (Levaquin*) 500 Mg Tablet 500 MG ORAL DAILY for 5 Days, TAB Risedronate Sodium (Actonel) 35 Mg Tablet 35 MG ORAL ONCE A month, TAB Administer in an upright position (sitting or standing). Avoid lying down for >=30 minutes following administration Discharge Condition Upon Discharge: stable Discharge Disposition Patient was discharged to Home (01) Discharge Diagnoses: Discharge Instructions Discharge Instructions Special Instructions I have been assigned to complete a D/C Summary on this account. I was not involved in the patient management Nerissa James NP ([facility]) Oct 23, 2016 08:51
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
== END 2016-10-22 16:15 | disposition home or self-care (01) | DRG 193 ==
LOC: EMR 19:45 → 2E 20:44 → EDBEDREQ 21:30 → 4E 10-18 21:00
DX: J18.9 Pneumonia, unspecified organism (principal); G82.50 Quadriplegia, unspecified; L89.153 Pressure ulcer of sacral region, stage 3; N39.0 Urinary tract infection, site not specified; E87.1 Hypo-osmolality and hyponatremia; J41.1 Mucopurulent chronic bronchitis; B96.1 Klebsiella pneumoniae [K. pneumoniae] as the cause of diseases classified elsewhere; B96.20 Unspecified Escherichia coli [E. coli] as the cause of diseases classified elsewhere; S14.8 Injury of other specified nerves of neck; V89.2XXS Person injured in unspecified motor-vehicle accident, traffic, sequela; N31.8 Other neuromuscular dysfunction of bladder; K59.00 Constipation, unspecified; K21.9 Gastro-esophageal reflux disease without esophagitis; M81.0 Age-related osteoporosis without current pathological fracture; Z87.891 Personal history of nicotine dependence
CPT/HCPCS: 36415; 71010; 80048; 80053; 80061; 80202; 81003; 82248; 83605; 83735; 83880; 83930; 83935; 84100; 84300; 84443; 84550; 85025; 85379; 86140; 87040; 87070; 87086; 87181; 87205; 93005; 93970; 94640; 94664; 94760; J7620